=== PATIENT | female | born 1930 | race Caucasian/White ===

== ENCOUNTER 2017-09-21 15:15 | Inpatient (IN) | payer MEDICARE ==
[2017-09-21 15:59] LABS: Hemoglobin 9.4 g/dL (12.0-16.0); Mean Corpuscular HGB CONC 33.7 g/dL (32.0-36.0); Mean Corpuscular Hemoglobin 31.8 pg (27.0-31.0); Mean Corpuscular Volume 94.4 fl (81.0-99.0); Mean Platelet Volume 8.2 fL (7.4-10.4); Platelet Count 266 thou/uL (130-400); RBC Distribution Width 12.2 % (11.5-14.5); Red Blood Cell (RBC) Count 2.95 mill/uL (4.20-5.40); White Blood Cell (WBC) Count 6.8 thou/uL (4.8-10.8)
[2017-09-21 16:05] LABS: INR-International Normal Ratio 3.5; PTT 60.1 SEC (22.9-36.1); Prothrombin Time 36.5 SEC (12.0-14.7)
[2017-09-21 16:15] LABS: Eosinophils 5 % (0-10); Lymphocytes 18 % (21-51); MDiff Complete? YES; Monocytes 3 % (0-10); Neutrophil 68 % (42-75); PLT Morphology Comment Appears Adequate; Polychromasia SLIGHT = 2-3 cells (100X) (0-2/hpf); Reactive Lymphocytes 3 % (0-10)
[2017-09-21 16:23] LABS: ALT (SGPT) 13 U/L (8-55); AST (SGOT) 18 U/L (5-34); Albumin 3.5 g/dL (3.4-4.8); Alkaline Phosphatase 67 U/L (40-150); Anion Gap 14 mmol/L (10-20); BUN (Urea Nitrogen) 82 mg/dL (9.8-20.1); Bilirubin, Total 0.3 mg/dL (0.2-1.2); CK (CPK) 69 U/L (29-168); Calc. Creatinine Clearance 0 mL/min (70-130); Calcium 8.7 mg/dL (7.8-10.44); Carbon Dioxide 21 mmol/L (23-31); Chloride 105 mmol/L (98-107); Estimated GFR-MDRD 6; Globulin 2.9 g/dL (2.4-3.5); Glucose 116 mg/dL (83-110); Potassium 4.4 mmol/L (3.5-5.1); Protein, Total 6.4 g/dL (6.0-8.3); Sodium 136 mmol/L (136-145)
[2017-09-21 16:28] LABS: Magnesium 2.3 mg/dL (1.6-2.6); Phosphorus 6.3 mg/dL (2.3-4.7); Troponin I 0.028 ng/mL (< 0.028)
--- NOTE | 2017-09-21 17:14 | RAD ---
FRONTAL VIEW CHEST: Date: 09/21/17 INDICATION: Edema, dialysis patient, fluid overload. Reference made to 07/06/15. FINDINGS: There is focal prominence at the right hilar region which could relate to dilated vasculature, althou gh underlying mass or adenopathy is not excluded. Cardiac silhouette is prominent. There is perihilar interstitial prominence and slight vascular congestion. No significant effusion or discrete pneumoth orax. Evaluation is otherwise grossly stable. IMPRESSION: 1. Focal prominence of the right perihilar region as discussed above. Continued imaging follow-up is recommended. 2. Evidence of mild fluid overload. POS: LORE
[2017-09-21 18:19] LABS: Bilirubin Negative (Negative); Blood, Urine Small (Negative); Clarity CLEAR (Clear); Glucose, Urine (Dipstick) Negative (Negative); Leukocyte Negative (Negative); Nitrite Negative (Negative); Protein, Urine (Dipstick) 100 mg/dL (Neg-Trace); Urobilinogen 0.2 mg/dL (0.2-1.0)
[2017-09-21 18:23] LABS: Bacteria/HPF None Seen HPF (None Seen); Hyaline Casts/LPF 0-3 HYALINE CAST LPF (0-3 Hyaline); RBC/HPF 0-3 HPF (0-3); Squamous Epithelial 0-3 HPF (0-3); WBC/HPF 0-3 HPF (0-3)
--- NOTE | 2017-09-21 20:04 | CON ---
DATE OF CONSULTATION: 09/21/2017 HISTORY OF PRESENT ILLNESS: Ms. 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 According to the patient, she has not been feeling well for the last several days. She has be en having nausea. In addition, her appetite is much decreased. Please note that the patient was see n in the renal clinic back on 08/24. At that time, I recommended dialytic intervention, but she decl ined. She will now be admitted for initiation of dialysis. I was called by the ER earlier due to a coag INR of 3.5. Our plan is to consult Surgery for plan for placement of a cuffed hemodialysis catheter. REVIEW OF SYSTEMS: Decreased appetite, decreased energy level. Positive for nausea, but no syncopal episode and no vomiting, no hematochezia, no melena, no hematemesis, no abdominal pain, no joint marylu ns. No headaches, no shortness of breath, no chest pain, no diplopia, no hematochezia, no melena, no hematemesis. MEDICATIONS: Hydralazine 50 mg p.o. b.i.d., clonidine 0.1 mg p.o. b.i.d., Coumadin 5 mg q.a.m., simv astatin 20 mg at bedtime, nifedipine ER 60 mg p.o. b.i.d., Levaquin 500 mg x2 days, Imdur ER 120 mg o nce a day, fenofibrate 48 mg once a day, Lovenox 60 mg subcutaneously daily?, Xanax 0.25 mg daily. Calcitriol 0.25 mcg daily, sodium bicarbonate 650 mg p.o. b.i.d., Bystolic 5 mg daily, tamsulosin 0.4 mg daily. PAST MEDICAL HISTORY: 1. 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 2. Longstanding hypertension. 3. Hyperlipidemia, right renal mass -- benign finding. 4. History of left small kidney. PAST SURGICAL HISTORY: Status post right shoulder surgery, status post hysterectomy, status post rig ht partial nephrectomy. SOCIAL HISTORY: The patient is , lives in [place], 3 children. Education, high school. Sede ntary lifestyle, status post multiple blood transfusions. FAMILY HISTORY: No family history of ESRD. ALLERGIES: PENICILLIN. TRAUMA: None. IMMUNIZATIONS: Up-to-date. HOSPITALIZATIONS: Please see past medical history. PHYSICAL EXAMINATION: VITAL SIGNS: Blood pressure 130/70, heart rate 70. GENERAL: Awake, alert, comfortable, lethargic, not in overt distress. SKIN: Decreased turgor. HEENT: Pinkish conjunctivae, anicteric sclerae. NECK: No neck mass, no carotid bruits, no JVD. CHEST: No deformities. LUNGS: Clear breath sounds, no wheezing, no crackles. HEART: Normal sinus rhythm. No murmur, no gallops, no rubs. ABDOMEN: Flat, soft, nontender. No masses. Negative for epigastric bruits. EXTREMITIES: No edema. LABORATORY AND X-RAY FINDINGS: Laboratories of 09/21/2017, INR 3.5. Sodium 136, potassium 4.4, chlo ride 105, carbon dioxide 21, BUN 82, creatinine 6.39, glucose 116, calcium 8.7, AST 18, ALT 13, album in 3.5, phosphorus 6.3, magnesium 2.3, hemoglobin 9.4. Chest x-ray pending. ASSESSMENT AND PLAN: 1. Chronic renal failure/hypertensive/renovascular disease -- I think the patient is clinically urem ic. We will proceed with dialytic intervention. Surgical consult will be done for placement of a cu ffed hemodialysis catheter placement. Due to the planned surgery. Her INR is noted to be 3.5 -- we will give 2 units of fresh frozen plasma. I did discuss the case with the ER physician and a surgica l consult will be done. 2. Labile hypertension. Continue current blood pressure meds. Overall, I agree with current management.
[2017-09-21] MEDS ORDERED: hydrALAZINE 20 MG/ML VIAL ONE (21:03)
--- NOTE | 2017-09-22 01:53 | HP ---
PRIMARY CARE PHYSICIAN: Citlaly Wang MD PRIMARY GUIDE DOG INSTRUCTOR: Chung Dowell MD REASON FOR ADMISSION: Initiate hemodialysis. HISTORY OF PRESENT ILLNESS: This is an 87-year-old white female with a history of hypertension and c hronic renal insufficiency, who was sent by Dr. Dowell for initiation of hemodialysis. She reports that she has had kidney problems ever since she developed high blood pressure about 7 years ago. 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 The other kidney looked smal l and nonfunctioning and they had to resect 2 tumors in [place] from her other kidney. Both of t hese turned out to be benign. She has had progressive worsening of her kidney function ever since . She does continue to produce large amount of urine; however, her creatinine has been increasing and climbing. She also reports fatigue and shortness of breath with exertion over the last months. The patient also has a history of having twisted and broke her right ankle about a month ago, and cur rently wearing a boot for that. She has no other specific complaints at this time. PAST MEDICAL HISTORY: 1. Hypertension x7 years. 2. Hypercholesterolemia. 3. Chronic renal insufficiency, now at stage V. 4. 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 PAST SURGICAL HISTORY: 1. Hysterectomy. 2. Right shoulder surgery. 3. Partial nephrectomy. PSYCHIATRIC HISTORY: None. SOCIAL HISTORY: No tobacco, alcohol, or illicit drug use. Her 4 months ago. She has h ad decreased appetite and food intake since then. She does not have any meal, she does not cook as o ften. FAMILY HISTORY: No significant family history per patient report. ALLERGIES: PENICILLIN. CURRENT MEDICATIONS: 1. Simvastatin 20 mg daily. 2. Isosorbide mononitrate 120 mg daily. 3. Nifedipine extended release 60 mg twice a day. 4. Calcitriol 0.25 mcg daily. 5. Clonidine 0.1 mg daily. 6. Bystolic 5 mg 1 daily. 7. Warfarin 7.5 mg daily except for Thursday when she is not supposed to take anything. 8. Fish oil 1000 mg daily. 9. Sodium bicarbonate 650 mg daily. 10. Tamsulosin 0.4 mg daily. 11. Alprazolam 0.25 mg daily. REVIEW OF SYSTEMS: Constitutional: No fevers. No chills. Decreased appetite and some weight loss per the son, though the patient denies this. Eyes: No double vision or blurred vision. ENT: No co ngestion, drainage, or sore throat. Cardiovascular: No chest pain. No palpitations or racing heart . Pulmonary: No coughing or wheezing. She does have a little bit of dyspnea on exertion. Otherwis e, no shortness of breath, no orthopnea. Gastrointestinal: No abdominal pain. No nausea or vomitin g. No diarrhea or constipation. Genitourinary: No dysuria or hematuria. She does produce large am ount of clear urine she states. Musculoskeletal: See HPI. No other complaints besides her left ank le, which is in a boot. Skin: She has a little bit of a rubbed area from underneath the boot over h er medial malleolus. She also has an itchy rash she gets on the back of her neck on and off. Neurol ogic: No numbness, tingling, or focal weakness. PHYSICAL EXAMINATION: VITAL SIGNS: Blood pressure 190/72, pulse 49, respirations 17, temperature 98.1, O2 sat 97% on room air. GENERAL: This is a well-developed elderly white female in no acute distress. HEENT: Pupils equal, round, and reactive to light. Oropharynx is clear without lesions, erythema, o r exudate. NECK: Supple. No lymphadenopathy. No thyroid nodules or enlargement. No JVD. HEART: Regular rate and rhythm. No murmurs, rubs, or gallops. LUNGS: She has some mild crackles in bilateral bases. Decent air movement throughout. ABDOMEN: Soft. Nontender to palpation. Normoactive bowel sounds. No hepatosplenomegaly or masses. EXTREMITIES: No clubbing, cyanosis, or edema. She does have a boot to her left foot. SKIN: She has a little bit of a rubbed area over her medial malleolus on the left side. No other ra shes were visualized. NEUROLOGIC: Intact strength in all extremities. Deep tendon reflex is 2+ in all extremities. No fa cial droop. LABORATORY DATA: CBC with a hemoglobin of 9.4, hematocrit of 27.9, normal MCV. The rest of the CBC is normal. Coagulation profile: INR is 3.5. Complete metabolic panel notable for carbon dioxide of 21, BUN of 82 and a creatinine of 6.39, and glucose of 116. The rest is normal. Phosphorus is elev ated at 6.3. Magnesium is normal at 2.3. Cardiac marker set negative x1. Urinalysis with small blo od and 100 protein. The rest was negative. Chest x-ray: I did review the chest x-ray done in the emergency room along with the radiologist's re port. It does show some bilateral increased interstitial markings consistent with mild volume overlo ad and then she has a focal prominence in the right perihilar region, which might be due to pulmonary vascular congestion versus cannot rule out a mass. ASSESSMENT AND PLAN: 1. Chronic kidney disease, stage V, now requiring dialysis. The patient is planned to have a tunnel ed dialysis catheter placed by Dr. Patel tomorrow morning. She needs to be n.p.o. after midnight. We will also need to reverse her Coumadin. She is receiving FFP in the emergency room. 2. Chronic anticoagulation, currently supratherapeutic on her Coumadin. We are holding Coumadin for now and giving FFP. 3. History of deep venous thrombosis and pulmonary embolism. This is all one-time incident only wit hout any specific risk factors for future deep venous thrombosis. It is possible that she may be abl e to go off Coumadin anticoagulation at some point. Definitely, it should be safe to hold it for any procedures that she has done to start her dialysis. 4. Hypertension. The patient is currently severely hypertensive. I will give her 10 mg of hydralaz ine IV q.4 hours as needed for severe hypertension and we will resume her home medications. I think she has missed her evening dose of nifedipine and uncertain if she is still on hydralazine at night. It was not listed on her ER notes. 5. Gastrointestinal prophylaxis. Put the patient on Pepcid twice a day. 6. Deep venous thrombosis prophylaxis. The patient is on sequential compression devices while she i s in bed. 7. Code status was discussed with the patient. She is a FULL CODE. Should she be incapacitated, he r son would be her medical decision maker. His name is Bjorn Huang.
[2017-09-22] MEDS ORDERED: Ondansetron HCl/PF 4 MG/2 ML Vial IVP PRN (02:58)
[2017-09-22] MEDS ORDERED: Ondansetron ODT 4 MG TAB SL PRN (02:58)
[2017-09-22] MEDS ORDERED: Acetaminophen 325 MG TAB PO PRN (02:58)
[2017-09-22] MEDS ORDERED: Acetaminophen 650 MG Suppository PR PRN (05:14)
[2017-09-22] MEDS ORDERED: Docusate 100 MG CAP PO SCH (05:30)
[2017-09-22] MEDS ORDERED: NIFEdipine XL 60 MG TAB PO SCH (05:30)
[2017-09-22] MEDS ORDERED: Lidocaine 1% PF 5 ML VIAL ONE (07:32)
[2017-09-22] MEDS ORDERED: PROPOFOL 200 MG/20 ML VIAL ONE (07:32)
[2017-09-22 07:58] LABS: INR-International Normal Ratio 2.3; Prothrombin Time 25.9 SEC (12.0-14.7)
[2017-09-22] MEDS: hydrALAZINE 20 MG/ML VIAL SLOW IVP PRN (08:23)
--- NOTE | 2017-09-22 09:21 | PDOC.PN ---
- Subjective Encounter Start Date: 09/22/17 Encounter Start Time: 10:40 Subjective: Patient with dyspnea on exertion. None at rest currently. Hungry as -: NPO for HD cath placement today. - Objective Resuscitation Status: Resuscitation Status FULL:Full Resuscitation MAR Reviewed: Yes Vital Signs & Weight: Vital Signs (12 hours) Temp Pulse Resp BP BP BP Pulse Ox 09/22/17 08:25 59 L 18 198/97 H 93 L 09/22/17 08:23 59 L 213/96 H 09/22/17 07:00 54 L 197/91 H 09/22/17 05:14 98.4 F 54 L 20 197/91 H 93 L 09/22/17 03:21 97.8 F 55 L 20 95 09/22/17 03:16 97.8 F 55 L 20 218/95 H 95 Weight Weight 117 lb 8 oz I&O: 09/21/17 09/22/17 09/23/17 06:59 06:59 06:59 Intake Total 100 Output Total 450 Balance -350 Result Diagrams: 09/21/17 15:34 09/21/17 15:34 Phys Exam - Physical Examination Constitutional: NAD HEENT: moist MMs Respiratory: no wheezing, no rhonchi mild rales in bases, good air movement throughout, no increased WOB Cardiovascular: RRR, no significant murmur Gastrointestinal: soft, non-tender, positive bowel sounds Musculoskeletal: no edema Neurological: non-focal, moves all 4 limbs Psychiatric: normal affect, A&O x 3 Dx/Plan (1) Chronic kidney disease, stage 5, kidney failure Code(s): N18.5 - CHRONIC KIDNEY DISEASE, STAGE 5 Status: Chronic Comment: Instituting Hemodialysis (2) Hx pulmonary embolism Code(s): Z86.711 - PERSONAL HISTORY OF PULMONARY EMBOLISM Status: Resolved Comment: on Coumadin, holding for vascular access (3) HTN (hypertension) Code(s): I10 - ESSENTIAL (PRIMARY) HYPERTENSION Status: Chronic Qualifiers: Hypertension type: essential hypertension Qualified Code(s): I10 - Essential (primary) hypertension Comment: severely elevated due to volume overload, needs dialysis, add nitropaste for now - Plan cont current plan of care Vascular access then start hemodialysis * . - Discharge Day Encounter end time: 10:50
[2017-09-22] MEDS ORDERED: ALPRAZolam 0.25 MG TAB PO PRN (09:23)
[2017-09-22] MEDS ORDERED: Clindamycin/D5W 900 MG in Premix Bag 1 BAG IVPB SCH (09:30)
--- NOTE | 2017-09-22 09:57 | PRG ---
DATE OF SERVICE: 09/22/2017 SUBJECTIVE: Mr. Zepeda is an 87-year-old white female with history of chronic renal failure for h ypertensive/renovascular disease that was admitted for uremic signs and symptoms. Surgical consult h as been done for a planned cuffed hemodialysis catheter placement. The patient denies any chest pain or shortness of breath this morning. We noted that the INR is still elevated. She did receive 2 un its of FFP last night. We will be ordering another 2 units of FFP this morning. OBJECTIVE: VITAL SIGNS: Blood pressure 198/97, heart rate 59, respiratory rate 18, pulse ox 93% room air. GENERAL: Awake, supine, comfortable, not in overt distress. SKIN: Adequate turgor. HEENT: Slightly pale conjunctivae, anicteric sclerae. NECK: No neck mass, no carotid bruits, no JVD. CHEST: No deformities. LUNGS: Clear breath sounds, no wheezing, no crackles. HEART: Normal sinus rhythm. No murmur, no gallops or rubs. ABDOMEN: Globular, soft, nontender, no masses. EXTREMITIES: No edema, no deformities. MEDICATIONS: Of 09/22/2017 reviewed. LABORATORY DATA: Of 09/21/2017, sodium 136, potassium 4.4, chloride 105, carbon dioxide 21, BUN 82, creatinine 6.39, GFR 6 mL per minute, calcium 8.7, phosphorus 6.3, magnesium 2.3. Chest x-ray of showed evidence of mild fluid overload. Prominence of right perihilar region. ASSESSMENT AND PLAN: 1. Chronic renal failure, worsening renal function for the last several months. I think the patient clinically uremic. We will proceed with dialysis. Surgical consult has been done for placement of cuffed hemodialysis catheter. The patient may eventually need arteriovenous fistula placement also s yoli she prefers hemodialysis. 2. Labile hypertension - minoxidil 2.5 mg tab was added to the current antihypertensive regimen. 3. Borderline anemia - continue to observe. 4. Mild volume overload - we will proceed with dialysis once the dialysis access is placed. 5. Mild hyperphosphatemia. Start Renvela 800 mg 1 tab t.i.d. with meals.
[2017-09-22 10:33] LABS: HBSAB Concentration 0.35 mIU/mL; Hep B Core Total Ab Non-Reactive (NonReactive); Hep B Core Total Index 0.05 S/CO (0-0.79); Hep B Surf AB Non-Reactive (NonReactive)
[2017-09-22] MEDS: Ondansetron ODT 4 MG TAB PO PRN (11:08)
[2017-09-22] MEDS: Minoxidil 2.5 MG TAB PO SCH (11:08)
[2017-09-22] MEDS: Acetaminophen 325 MG TAB PO PRN ×2 (11:08→22:30)
[2017-09-22] MEDS: Sevelamer Carbonate 800 MG TAB PO SCH ×2 (11:33→17:11)
[2017-09-22 11:56] LABS: Hep B Surf Ag NonReactive S/CO (NonReactive)
[2017-09-22 11:57] LABS: HBSAg Index 0.23 S/CO (0-0.99)
[2017-09-22] MEDS ORDERED: Nitroglycerin 2% Ointment 1 INCH/1 GM Packet TOP SCH (12:00)
[2017-09-22] MEDS ORDERED: Heparin 10,000 UNITS/ 10 ML VIAL ONE (12:00)
--- NOTE | 2017-09-22 13:13 | CON ---
DATE OF CONSULTATION: 09/22/2017 REASON FOR CONSULT: Renal failure. HISTORY OF PRESENT ILLNESS: Ms. Huang is an 87-year-old woman with known chronic renal disease, who has progressed to stage 5. Her seed trucker had suggested last month that she started on hemodi alysis, but she declined at that time. She came into the emergency room yesterday due to increasing malaise. She has had some issues of nausea and rare abdominal discomfort. She lost her balance rece ntly and twisted her left ankle, sustaining a small fracture and is in a walking boot for that. The history that other providers have taken suggests that she has some shortness of breath, which has bee n increasing, but she denies this. However, she does not have much them and can only walk about 50 f eet even before she sustained her ankle injury. Other providers have also gotten a history of poor f ood intake, but she denies this as well; however, she does admit that she has been losing weight over the past few months. Her of many years in May when she states that even though she feels like she is eating normally. Her weight has been dropping. She denies any change in her xu l habits and does not have any orthopnea. She does have some mild swelling in her legs, but mostly r elated to her ankle fracture. PAST MEDICAL HISTORY: Hypertension, hyperlipidemia, end-stage renal failure, history of deep venous thrombosis and pulmonary embolus in her left leg 2 years ago without any history of trauma, and recen t left ankle injury with small fracture. PAST SURGICAL HISTORY: Hysterectomy, shoulder surgery, and partial nephrectomy. SOCIAL HISTORY: She does not smoke, drink or use illicit drugs. Her son is at the bedside and her d esignated decision maker in the event that she is unable to make her own decisions. She is f or the past 4 months. FAMILY HISTORY: No significant family medical history. ALLERGIES: PENICILLIN causes a rash. OUTPATIENT MEDICATIONS: Include simvastatin, isosorbide mononitrate, nifedipine, calcitriol, clonidi ne, Bystolic, warfarin, fish oil, sodium bicarbonate, tamsulosin, and alprazolam. INPATIENT MEDICATIONS: Include Lipitor, docusate, fenofibrate, hydralazine, isosorbide mononitrate, minoxidil, nifedipine, nitroglycerin ointment, Renvela, and multiple p.r.n.'s. REVIEW OF SYSTEMS: Ten system review of systems is negative except per HPI. PHYSICAL EXAMINATION: VITAL SIGNS: The patient is afebrile, heart rate in the 50s, blood pressure 171/79, respirations 18, 93% saturated on room air. GENERAL: Reveals a frail elderly woman, in no acute distress. Her BMI is 18. She is not flushed or toxic in appearance. She is not jaundiced or icteric. HEENT: Unremarkable. NECK: Supple, without lymphadenopathy or thyroid nodules. HEART: Regular in its rate and rhythm. I do not appreciate any murmurs. LUNGS: Clear to auscultation bilaterally. ABDOMEN: Soft and nontender. She has healed surgical incisions. EXTREMITIES: Warm and well perfused. She has bilateral filling on Donald's testing. She has good ce phalic veins and antecubital veins palpable and visible on examination bilaterally. She has an IV in the right arm and is right-handed. Her left ankle is swollen and bruised. There is small abrasion over the left medial ankle area. NEUROLOGIC: No focal deficits. PSYCHIATRIC: Alert, oriented, and appropriate. LABORATORY DATA: White count is normal at 6.8, hematocrit low at 27.9, platelets 266. Her initial I NR was 3.5, this has come down to 2.3 after 2 units of FFP. BUN and creatinine are 82 and 6.39. Pot assium is 4.4 and bicarbonate is 21. Phosphorus is elevated at 6.3. Urine is positive for protein a nd a small amount of blood. IMAGING: Chest x-ray showed some mild fluid overload and mild prominence of the right perihilar maddie on. ASSESSMENT AND PLAN: End-stage renal failure felt to have uremic symptoms by her seed trucker, also in mild fluid overload with decreasing stamina and increasing dyspnea on exertion. The patient has d ecided to go ahead and start on hemodialysis and requires a dialysis catheter for this. I feel that her bleeding risk is acceptable at an INR of 2.3 to proceed with placement of a tunneled hemodialysis catheter. The procedure and its inherent risks were discussed with the patient and her son. These include but are not limited to bleeding, which is increased due to her chronic anticoagulation; infec tion; risks of anesthesia; hemothorax or pneumothorax; and need for other procedures. They understan d and accept these risks and wish to proceed. I have put her on the schedule for later today. All o f their questions were answered and antibiotics have been ordered industrial production manager to the OR.
[2017-09-22] MEDS ORDERED: Clindamycin/D5W 900 mg/50 ml Premix Bag ONE (13:47)
[2017-09-22] MEDS ORDERED: Levofloxacin 500 mg/D5W 100 ml Premix Bag ONE (14:40)
[2017-09-22] MEDS ORDERED: Bupivacaine/Epinephrine 0.25% 30 ML VIAL ONE (15:11)
[2017-09-22] MEDS ORDERED: Lidocaine 2% 10 ML INJ ONE (15:11)
[2017-09-22] MEDS ORDERED: Heparin 10,000 UNITS/1 ML VIAL ONE (15:11)
[2017-09-22] MEDS ORDERED: Sodium Chloride 0.9% 20 ML ONE (15:11)
[2017-09-22] MEDS ORDERED: Meperidine HCl/PF 25 MG/ML VIAL ONE (15:19)
--- NOTE | 2017-09-22 18:14 | RAD ---
CHEST 1 VIEW: Date: 09/22/17 HISTORY: Hemodialysis catheter placement. COMPARISON: Radiograph from prior day. FINDINGS: Dialysis catheter is in place with tip at the mid to inferior SVC. No pneumothorax. Prior Latarjet procedure of the right shoulder. Chronic interstitial markings in the lungs. Cardiac s ilhouette and mediastinal contours are similar. IMPRESSION: No pneumothorax post dialysis catheter placement. POS: C
[2017-09-22] MEDS: hydrALAZINE 25 MG TAB PO SCH (19:31)
[2017-09-22] MEDS: Docusate 100 MG CAP PO SCH (20:47)
[2017-09-22] MEDS: Atorvastatin Calcium 10 MG TAB PO SCH (20:47)
[2017-09-22] MEDS: Nitroglycerin 2% Ointment 1 INCH/1 GM Packet TOP SCH (20:48)
[2017-09-22] MEDS: NIFEdipine XL 60 MG TAB PO SCH (20:48)
[2017-09-22] MEDS ORDERED: Non-Formulary Item 1 EACH (Hydralazine Hcl [Hydralazine Hcl] 50 MG) PO SCH (21:00)
[2017-09-22] MEDS ORDERED: Simvastatin 20 MG TAB PO SCH (21:00)
[2017-09-23] MEDS: Ondansetron ODT 4 MG TAB PO PRN ×2 (00:20→22:06)
[2017-09-23] MEDS: hydrALAZINE 20 MG/ML VIAL SLOW IVP PRN (00:20)
[2017-09-23 04:56] LABS: #Eosinphils 0.3 thou/uL (0.0-0.7); #Monocytes 0.9 thou/uL (0.11-0.59); #Neutrophils 6.4 thou/uL (1.40-6.50); %Basophils 0.1 % (0.0-1.0); %Eosinophils 3.1 % (0.0-10.0); %Lymphocytes 11.9 % (21.0-51.0); %Monocytes 10.7 % (0.0-10.0); %Neutrophils 74.2 % (42.0-75.0); Hemoglobin 10.1 g/dL (12.0-16.0); Mean Corpuscular HGB CONC 33.7 g/dL (32.0-36.0); Mean Corpuscular Hemoglobin 31.8 pg (27.0-31.0); Mean Corpuscular Volume 94.5 fl (81.0-99.0); Mean Platelet Volume 8.2 fL (7.4-10.4); Platelet Count 245 thou/uL (130-400); RBC Distribution Width 12.5 % (11.5-14.5); Red Blood Cell (RBC) Count 3.18 mill/uL (4.20-5.40); White Blood Cell (WBC) Count 8.7 thou/uL (4.8-10.8)
[2017-09-23 05:16] LABS: Anion Gap 15 mmol/L (10-20); BUN (Urea Nitrogen) 48 mg/dL (9.8-20.1); Calc. Creatinine Clearance 7 mL/min (70-130); Calcium 8.8 mg/dL (7.8-10.44); Carbon Dioxide 24 mmol/L (23-31); Chloride 103 mmol/L (98-107); Estimated GFR-MDRD 9; Glucose 88 mg/dL (83-110); Phosphorus 4.7 mg/dL (2.3-4.7); Sodium 138 mmol/L (136-145)
[2017-09-23] MEDS ORDERED: Heparin 10,000 UNITS/ 10 ML VIAL ONE ×2 (09:00)
[2017-09-23] MEDS: Sevelamer Carbonate 800 MG TAB PO SCH ×3 (11:09→16:20)
[2017-09-23] MEDS: NIFEdipine XL 60 MG TAB PO SCH ×2 (11:10→20:58)
[2017-09-23] MEDS: Docusate 100 MG CAP PO SCH ×2 (11:10→20:58)
[2017-09-23] MEDS: Nitroglycerin 2% Ointment 1 INCH/1 GM Packet TOP SCH ×2 (11:11→21:00)
[2017-09-23] MEDS: Fenofibrate 48 MG TAB PO SCH (11:11)
[2017-09-23] MEDS: Minoxidil 2.5 MG TAB PO SCH (11:11)
[2017-09-23] MEDS: hydrALAZINE 25 MG TAB PO SCH ×2 (11:16→20:58)
--- NOTE | 2017-09-23 13:17 | PRG ---
DATE OF SERVICE: 09/23/2017 RENAL MEDICINE SUBJECTIVE: Ms. Huang is an 87-year-old white female who was admitted for uremic signs and symp toms. She has been initiated on dialysis. She had a cuffed hemodialysis catheter placed. She under went 1-hour dialysis yesterday. She is currently at the dialysis unit. I am supervising the patient with dialysis and I was at the bedside. Tolerating said treatment. No other complaints, no chest p ain or shortness of breath. PHYSICAL EXAMINATION: VITAL SIGNS: Blood pressure is noted at 164/72, heart rate 68, respiratory rate 14, temperature 98.4 , pulse ox 94%. GENERAL: Noted to be awake, alert, comfortable, not in overt distress. SKIN: Adequate turgor. HEENT: Pinkish conjunctivae, anicteric sclerae. NECK: No neck mass, no carotid bruits, no JVD. CHEST: No deformities. LUNGS: Clear breath sounds, no wheezing, no crackles. HEART: Normal sinus rhythm. No murmurs, no gallops, no rubs. ABDOMEN: Globular, soft, nontender, no masses. EXTREMITIES: No edema, no deformities. MEDICATIONS: Medications of 09/23/2017 was reviewed. LABORATORY DATA: Laboratories of 09/23/2017; white count 8.7, hemoglobin 10.1, hematocrit 30. Sodiu m 138, potassium 4, chloride 103, carbon dioxide 24, BUN 48, creatinine 4.71, calcium 8.8, phosphorus 4.7, PTH is 188.2. ASSESSMENT AND PLAN: 1. Chronic renal failure - due to the clinical signs of uremia, patient was initiated on dialysis. My plan is to do daily hemodialysis with this patient. I have also made arrangement for outpatient d ialysis placement with the patient. 2. Labile hypertension, improved. Continue current blood pressure meds. Check base met and CBC in a.m.
--- NOTE | 2017-09-23 14:21 | PDOC.PN ---
- Subjective Encounter Start Date: 09/23/17 Encounter Start Time: 14:00 Subjective: f/u for ESRD initiating HD completing one session without difficulty. -: No new complaints, SOB, CP. Appetite ok. - Objective Resuscitation Status: Resuscitation Status FULL:Full Resuscitation MAR Reviewed: Yes Vital Signs & Weight: Vital Signs (12 hours) Temp Pulse Resp BP Pulse Ox 09/23/17 11:16 56 L 09/23/17 11:10 56 L 09/23/17 11:05 98.1 F 56 L 16 178/74 H 96 09/23/17 07:58 98.4 F 60 14 164/72 H 94 L 09/23/17 04:00 98.7 F 64 18 141/63 H 96 09/23/17 02:35 97 Weight Admit Weight 117 lb 8 oz Weight 117 lb 8 oz I&O: 09/22/17 09/23/17 09/24/17 06:59 06:59 06:59 Intake Total 100 1220 Output Total 450 820 Balance -350 400 Result Diagrams: 09/23/17 03:46 09/23/17 03:46 Additional Labs: Laboratory Tests 07/12/15 09/21/17 09/21/17 04:05 15:34 15:34 Hgb PT 21.3 H INR 1.8 3.5 Creatinine 6.39 H Phosphorus Magnesium 09/21/17 09/21/17 09/22/17 15:34 15:36 07:39 Hgb 9.4 L PT INR 2.3 Creatinine Phosphorus 6.3 H Magnesium 2.3 09/23/17 03:46 Hgb PT INR Creatinine Phosphorus 4.7 Magnesium EKG Reviewed by me: Yes (Tele - SR) Phys Exam - Physical Examination Constitutional: NAD HEENT: PERRLA, moist MMs, sclera anicteric, oral pharynx no lesions Neck: no nodes, no JVD, supple Respiratory: no wheezing, no rales, no rhonchi, clear to auscultation bilateral S1, S2 Cardiovascular: RRR, no significant murmur, no rub, gallop Gastrointestinal: soft, non-tender, no distention, positive bowel sounds Musculoskeletal: no edema, pulses present Neurological: non-focal, normal sensation, moves all 4 limbs Psychiatric: normal affect, A&O x 3 Skin: no rash, normal turgor, cap refill <2 seconds Dx/Plan (1) ESRD (end stage renal disease) on dialysis Code(s): N18.6 - END STAGE RENAL DISEASE; Z99.2 - DEPENDENCE ON RENAL DIALYSIS Status: Acute Comment: HD initiated 09/22/17, plan for outpt HD with [facility] on d/c, continue HD per Renal recommendations, vein mapping today (2) Chronic anticoagulation Code(s): Z79.01 - HEATING UNIT MECH[employer]IC (CURRENT) USE OF ANTICOAGULANTS Status: Chronic Comment: supratherapeutic INR s/p 4u FFP, serial INR monitoring, resume Coumadin (3) Anemia in CKD (chronic kidney disease) Code(s): N18.9 - CHRONIC KIDNEY DISEASE, UNSPECIFIED; D63.1 - ANEMIA IN CHRONIC KIDNEY DISEASE Status: Chronic Comment: Serial H/H, (4) HTN (hypertension) Code(s): I10 - ESSENTIAL (PRIMARY) HYPERTENSION Status: Chronic Qualifiers: Hypertension type: essential hypertension Qualified Code(s): I10 - Essential (primary) hypertension Comment: Improved after initiating HD, serial monitoring, continue Minoxidil, Nifedipine and Hydralazine - Plan plan discussed w/ family, PT/OT, renal social worker, out of bed/ambulate, DVT proph w/SCDs Stable currently -: Continue serial HD -: CM for outpt coordination for HD -: Transfer to Medical floor -: AM lab: BMP, CBC * ? D/C in 24-48h
--- NOTE | 2017-09-23 16:13 | ULT ---
BILATERAL UPPER EXTREMITY VENOUS MAPPIN09/23/2017 HISTORY: End stage renal disease. Evaluate for dialysis access. FINDINGS: There is sluggish flow within the right internal jugular vein, which is nonspecific. Color-flow eval uation, as well as Doppler evaluation, does demonstrate flow in the right internal jugular vein. The re is flow present in the right subclavian vein, with normal lumen compressibility present within the right axillary vein. There is normal flow and lumen compressibility of the left internal jugular ve in, with normal flow in the left subclavian vein and normal lumen compressibility in the left axillar y vein. RIGHT UPPER EXTREMITY CEPHALIC VEIN DIAMETERS: UPPER ARM: 1.8 mm MID ARM: 3.1 mm DISTAL ARM: 2 mm ANTECUBITAL FOSSA: 2.2 mm PROXIMAL FOREARM: 2.3 mm MID FOREARM: 2 mm DISTAL FOREARM: 1.9 mm RIGHT UPPER EXTREMITY BASILIC VEIN DIAMETERS: UPPER ARM: 2.7 mm MID ARM: 2.7 mm DISTAL ARM: 4.1 mm ANTECUBITAL FOSSA: 4.2 mm PROXIMAL FOREARM: 2.5 mm MID FOREARM: 1.6 mm DISTAL FOREARM: 1.4 mm LEFT UPPER EXTREMITY CEPHALIC VEIN DIAMETERS: UPPER ARM: 4.1 mm MID ARM: 3.6 mm DISTAL ARM: 4.1 mm ANTECUBITAL FOSSA: 2.7 mm PROXIMAL FOREARM: 3 mm MID FOREARM: 3.4 mm DISTAL FOREARM; 3.9 mm LEFT UPPER EXTREMITY BASILIC VEIN DIAMETERS: UPPER ARM: 3.1 mm MID ARM: 2.6 mm DISTAL ARM: 2.3 mm ANTECUBITAL FOSSA: 2.6 mm PROXIMAL FOREARM: 2.2 mm MID FOREARM: 1.2 mm DISTAL FOREARM: 1.9 mm RIGHT UPPER EXTREMITY ARTERIAL DIAMETERS: BRACHIAL ARTERY: 4 mm RADIAL ARTERY: 3 mm ULNAR ARTERY: 1.9 mm LEFT UPPER EXTREMITY ARTERIAL DIAMETERS: BRACHIAL ARTERY: 4.3 mm RADIAL ARTERY: 2.7 mm ULNAR ARTERY: 1.9 mm IMPRESSION: Cephalic and basilic vein diameters are as described above. POS: [facility]
[2017-09-23] MEDS ORDERED: Tuberculin PPD 0.1 ML VIAL I-DERMAL SCH (18:00)
[2017-09-23] MEDS: Atorvastatin Calcium 10 MG TAB PO SCH (20:58)
[2017-09-24] MEDS: Ondansetron HCl/PF 4 MG/2 ML Vial IVP PRN ×2 (00:35→13:56)
[2017-09-24 04:59] LABS: #Eosinphils 0.1 thou/uL (0.0-0.7); #Lymphocytes 0.7 thou/uL (1.20-3.40); #Monocytes 1.2 thou/uL (0.11-0.59); #Neutrophils 7.6 thou/uL (1.40-6.50); %Basophils 0.1 % (0.0-1.0); %Eosinophils 0.9 % (0.0-10.0); %Lymphocytes 7.6 % (21.0-51.0); %Neutrophils 79.4 % (42.0-75.0); Mean Corpuscular HGB CONC 33.7 g/dL (32.0-36.0); Mean Corpuscular Volume 95.1 fl (81.0-99.0); Mean Platelet Volume 8.6 fL (7.4-10.4); Platelet Count 264 thou/uL (130-400); RBC Distribution Width 12.3 % (11.5-14.5); Red Blood Cell (RBC) Count 3.11 mill/uL (4.20-5.40); White Blood Cell (WBC) Count 9.6 thou/uL (4.8-10.8)
[2017-09-24 05:20] LABS: Anion Gap 12 mmol/L (10-20); BUN (Urea Nitrogen) 43 mg/dL (9.8-20.1); Calc. Creatinine Clearance 8 mL/min (70-130); Calcium 9.1 mg/dL (7.8-10.44); Carbon Dioxide 27 mmol/L (23-31); Chloride 100 mmol/L (98-107); Estimated GFR-MDRD 9; Glucose 112 mg/dL (83-110); Potassium 3.9 mmol/L (3.5-5.1); Sodium 135 mmol/L (136-145)
[2017-09-24] MEDS ORDERED: Heparin 10,000 UNITS/ 10 ML VIAL ONE (09:00)
--- NOTE | 2017-09-24 09:13 | PRG ---
DATE OF SERVICE: 09/24/2017 SERVICE: Renal Medicine. SUBJECTIVE: Ms. Huang is an 87-year-old white female with chronic renal failure, undergoing hem odialysis. I am at the bedside supervising her dialysis. She voices no new complaints except the fa ct that she thinks that dialysis x2 done. We will do her only for 3 hours today. My plan is not to do her dialysis tomorrow, but place her back on a Thursday, , and Thursday dialysis. No compl aints of chest pain or shortness of breath. OBJECTIVE: VITAL SIGNS: Blood pressure is 136/64, heart rate 76, respiratory rate 15, temperature 98.4, pulse o x 95%. GENERAL: Awake, alert, comfortable, not in distress. SKIN: Adequate turgor. HEENT: Pinkish conjunctivae, anicteric sclerae. NECK: No neck mass, no carotid bruits, no JVD. CHEST: No deformities. LUNGS: Clear breath sounds, no wheezing, no crackles. HEART: Normal sinus rhythm. No murmur, no gallops, no rubs. ABDOMEN: Globular, soft, nontender, no masses. EXTREMITIES: No edema, no deformities. MEDICATIONS: Of 09/24/2017 was reviewed. LABORATORY DATA: Of 09/24/2017 shows a white count of 9.6, hemoglobin 10. Sodium 135, potassium 3.9 , chloride 100, carbon dioxide 27, BUN 43, creatinine 4.49. ASSESSMENT AND PLAN: 1. Chronic renal failure/end-stage renal disease - doing well. Tolerating current hemodialysis maddie men. No changes will be made with her current dialysis regimen except to place her back on a Thursday , , and Thursday dialysis regimen. We are awaiting dialysis placement for this patient. 2. Hypertension, much improved with adjustment of blood pressure medications. 3. Borderline anemia. Continue to observe.
[2017-09-24] MEDS: Sevelamer Carbonate 800 MG TAB PO SCH ×3 (11:34→18:02)
[2017-09-24] MEDS: hydrALAZINE 25 MG TAB PO SCH ×2 (11:35→21:12)
[2017-09-24] MEDS: Nitroglycerin 2% Ointment 1 INCH/1 GM Packet TOP SCH ×2 (11:35→21:13)
[2017-09-24] MEDS: Fenofibrate 48 MG TAB PO SCH (11:35)
[2017-09-24] MEDS: Minoxidil 2.5 MG TAB PO SCH (11:35)
[2017-09-24] MEDS: Docusate 100 MG CAP PO SCH ×2 (11:35→21:12)
[2017-09-24] MEDS: NIFEdipine XL 60 MG TAB PO SCH ×2 (11:35→21:12)
[2017-09-24] MEDS ORDERED: Ondansetron HCl/PF 4 MG/2 ML Vial SLOW IVP SCH (15:45)
--- NOTE | 2017-09-24 16:20 | PDOC.PN ---
- Subjective Encounter Start Date: 09/24/17 Encounter Start Time: 16:15 Subjective: f/u for ESRD on HD tolerating session today. Developed nausea and vomiting -: afterward minimally responsive to Zofran. Last meal at lunchtime. No BM -: in 2-3 days. - Objective Resuscitation Status: Resuscitation Status FULL:Full Resuscitation MAR Reviewed: Yes Vital Signs & Weight: Vital Signs (12 hours) Temp Pulse Resp BP Pulse Ox 09/24/17 15:19 97.4 F L 71 18 154/80 H 97 09/24/17 11:35 70 09/24/17 11:28 98.0 F 70 16 156/69 H 93 L 09/24/17 07:32 98.4 F 76 15 136/64 95 Weight Admit Weight 117 lb 8 oz Weight 116 lb 13.52 oz I&O: 09/23/17 09/24/17 09/25/17 06:59 06:59 06:59 Intake Total 1220 240 480 Output Total 696 026 3880 Balance 400 -160 -520 Result Diagrams: 09/24/17 03:50 09/24/17 03:50 Additional Labs: Laboratory Tests 07/12/15 09/21/17 09/21/17 04:05 15:34 15:34 Hgb PT 21.3 H INR 1.8 3.5 Creatinine 6.39 H Phosphorus Magnesium 09/21/17 09/21/17 09/22/17 15:34 15:36 07:39 Hgb 9.4 L PT INR 2.3 Creatinine Phosphorus 6.3 H Magnesium 2.3 09/23/17 03:46 Hgb PT INR Creatinine Phosphorus 4.7 Magnesium EKG Reviewed by me: Yes (Tele - SR in 60's) Phys Exam - Physical Examination ill-appearing, alert, responds to questions HEENT: PERRLA, moist MMs, sclera anicteric, oral pharynx no lesions Neck: no nodes, no JVD, supple R upper chest with tunneled HD catheter in place Respiratory: no wheezing, no rales, no rhonchi, clear to auscultation bilateral Cardiovascular: RRR, no significant murmur, no rub, gallop Gastrointestinal: soft, non-tender, no distention, positive bowel sounds Musculoskeletal: no edema, pulses present Neurological: non-focal, normal sensation, moves all 4 limbs Psychiatric: normal affect, A&O x 3 Skin: no rash, normal turgor, cap refill <2 seconds Dx/Plan (1) Nausea & vomiting Code(s): R11.2 - NAUSEA WITH VOMITING, UNSPECIFIED Status: Acute Comment: Change Zofran 8mg IV q6h prn, add Phenergan 12.5mg IV q6h prn, clear liquids, likely due to ESRD and initiation of HD (2) ESRD (end stage renal disease) on dialysis Code(s): N18.6 - END STAGE RENAL DISEASE; Z99.2 - DEPENDENCE ON RENAL DIALYSIS Status: Acute Comment: HD initiated 09/22/17, plan for outpt HD with [facility] on d/c, continue HD per Renal recommendations, vein mapping today (3) Chronic anticoagulation Code(s): Z79.01 - FDC (CURRENT) USE OF ANTICOAGULANTS Status: Chronic Comment: supratherapeutic INR s/p 4u FFP, serial INR monitoring (4) Anemia in CKD (chronic kidney disease) Code(s): N18.9 - CHRONIC KIDNEY DISEASE, UNSPECIFIED; D63.1 - ANEMIA IN CHRONIC KIDNEY DISEASE Status: Chronic Comment: Serial H/H, stable hemoglobin currently and no evidence of acute blood loss (5) HTN (hypertension) Code(s): I10 - ESSENTIAL (PRIMARY) HYPERTENSION Status: Chronic Qualifiers: Hypertension type: essential hypertension Qualified Code(s): I10 - Essential (primary) hypertension Comment: Improved after initiating HD, serial monitoring, continue Minoxidil, Nifedipine and Hydralazine - Plan plan discussed w/ family, PT/OT, social work job titles, out of bed/ambulate, DVT proph w/SCDs Continue supportive mgmt -: Zofran and Phenergan for N/V -: HD per Renal service -: CM to assist with outpt coordination of HD -: PT for ambulation * AM lab: PT/INR, BMP
[2017-09-24] MEDS ORDERED: Promethazine HCl 25 MG/ML VIAL IM/IV PRN (16:33)
[2017-09-24] MEDS: Atorvastatin Calcium 10 MG TAB PO SCH (21:12)
[2017-09-24] MEDS: Ondansetron ODT 4 MG TAB PO PRN (21:16)
[2017-09-25 05:59] LABS: Anion Gap 14 mmol/L (10-20); BUN (Urea Nitrogen) 39 mg/dL (9.8-20.1); Calc. Creatinine Clearance 8 mL/min (70-130); Calcium 9.4 mg/dL (7.8-10.44); Carbon Dioxide 29 mmol/L (23-31); Chloride 98 mmol/L (98-107); Estimated GFR-MDRD 9; Glucose 115 mg/dL (83-110); Potassium 4.1 mmol/L (3.5-5.1); Sodium 137 mmol/L (136-145)
--- NOTE | 2017-09-25 07:29 | PRG ---
DATE OF SERVICE: 09/25/2017 SERVICE: Renal Medicine. SUBJECTIVE: Ms. Huang is an 87-year-old white female who was admitted for uremic signs and symp toms. We initiated hemodialysis with this patient. This morning, she is feeling better. Yesterday, she had several episodes of nausea and vomiting, but this morning she feels much improved. No compl aints of chest pain or shortness of breath. She has been undergoing dialysis without any difficulty. PHYSICAL EXAMINATION: VITAL SIGNS: Blood pressure 128/53, heart rate 89, respiratory rate 15, temperature 98, pulse ox 92% . GENERAL: Awake, alert, comfortable, not in distress. SKIN: Adequate turgor. HEENT: She has pinkish conjunctivae, anicteric sclerae. NECK: No neck mass, no carotid bruits, no JVD. CHEST: No deformities. LUNGS: Clear breath sounds. HEART: Normal sinus rhythm. No murmur, no gallops, no rubs. ABDOMEN: Globular, soft, nontender, no masses. EXTREMITIES: No edema. MEDICATIONS: Of 09/25/2017 was reviewed. LABORATORY DATA: Of 09/25/2017, sodium 137, potassium 4.1, chloride 98, carbon dioxide 29, BUN 39, c reatinine 4.45, glucose 115, calcium 9.4. On 09/24/2017, hemoglobin 10. ASSESSMENT AND PLAN: 1. End-stage renal disease/chronic renal failure, stable. Tolerating current hemodialysis. My plan is to do hemodialysis for 3 hours tomorrow and then place her on 3 times a week hemodialysis regimen . We are currently awaiting outpatient dialysis placement. 2. Hypertension, much improved. Continue current blood pressure medications. 3. Nausea and vomiting - much improved with Phenergan and p.r.n. Zofran. Overall, prognosis remains guarded with this patient. Agree with current management. Recheck base m et and CBC in a.m.
[2017-09-25] MEDS: Nitroglycerin 2% Ointment 1 INCH/1 GM Packet TOP SCH ×2 (09:10→21:33)
[2017-09-25] MEDS: Minoxidil 2.5 MG TAB PO SCH (09:11)
[2017-09-25] MEDS: NIFEdipine XL 60 MG TAB PO SCH ×2 (09:11→21:33)
[2017-09-25] MEDS: Fenofibrate 48 MG TAB PO SCH (09:11)
[2017-09-25] MEDS: Docusate 100 MG CAP PO SCH ×2 (09:12→21:33)
[2017-09-25] MEDS: Sevelamer Carbonate 800 MG TAB PO SCH ×3 (09:21→17:52)
[2017-09-25] MEDS: Ondansetron ODT 4 MG TAB PO PRN (11:28)
[2017-09-25] MEDS: hydrALAZINE 25 MG TAB PO SCH ×2 (11:33→21:32)
--- NOTE | 2017-09-25 12:15 | PDOC.PN ---
- Subjective Encounter Start Date: 09/25/17 Encounter Start Time: 08:20 Pt seen for followup re: nausea and vomiting. Denies chest pain. Nausea is better. - Objective Resuscitation Status: Resuscitation Status FULL:Full Resuscitation MAR Reviewed: Yes Vital Signs & Weight: Vital Signs (12 hours) Temp Pulse Resp BP Pulse Ox 09/25/17 11:33 78 09/25/17 10:50 97.9 F 78 12 133/64 94 L 09/25/17 09:11 82 09/25/17 08:12 98.5 F 82 16 133/62 92 L 09/25/17 07:42 98.0 F 89 15 09/25/17 04:05 98.0 F 89 15 128/53 L 92 L Weight Admit Weight 117 lb 8 oz Weight 117 lb 11.2 oz I&O: 09/24/17 09/25/17 09/26/17 06:59 06:59 06:59 Intake Total 240 840 Output Total 400 1000 Balance -160 -160 Result Diagrams: 09/28/17 04:39 09/28/17 04:39 Additional Labs: Labs reviewed by me Phys Exam - Physical Examination appears malnourished HEENT: moist MMs, sclera anicteric, oral pharynx no lesions, 2+ tonsils Neck: no nodes, no JVD, supple, full ROM Respiratory: no wheezing, no rales, no rhonchi, clear to auscultation bilateral Cardiovascular: RRR, no rub S1, S2 Gastrointestinal: soft, non-tender, no distention, positive bowel sounds Neurological: moves all 4 limbs Psychiatric: normal affect, A&O x 3 Dx/Plan (1) Nausea & vomiting Code(s): R11.2 - NAUSEA WITH VOMITING, UNSPECIFIED Status: Acute Comment: Improved, continue Zofran prn, likely a result of uremia, ESRD and demand ischemia (2) ESRD (end stage renal disease) on dialysis Code(s): N18.6 - END STAGE RENAL DISEASE; Z99.2 - DEPENDENCE ON RENAL DIALYSIS Status: Acute Comment: HD initiated 09/22/17, considering d/c of HD due to side effects (3) Hx pulmonary embolism Code(s): Z86.711 - PERSONAL HISTORY OF PULMONARY EMBOLISM Status: Chronic Comment: warfarin on hold (4) HTN (hypertension) Code(s): I10 - ESSENTIAL (PRIMARY) HYPERTENSION Status: Chronic Qualifiers: Hypertension type: essential hypertension Qualified Code(s): I10 - Essential (primary) hypertension Comment: controlled, hypotension noted in last 24h, modify dosing regimen and likely will benefit from spreading dosing intervals over the day - Plan * . Review of Systems - Review of Systems Constitutional: negative: fever, chills, sweats, weakness, malaise Cardiovascular: negative: chest pain, palpitations, orthopnea, paroxysmal nocturnal dyspnea, edema, light headedness Gastrointestinal: Nausea. negative: Vomiting, Abdominal Pain, Diarrhea, Constipation, Melena, Hematochezia Genitourinary: negative: Dysuria, Frequency, Incontinence, Hematuria, Retention Skin: negative: Rash, Lesions, Andrea, Bruising - Medications/Allergies Allergies/Adverse Reactions: Allergies Allergy/AdvReac Type Severity Reaction Status Date / Time Penicillins Allergy Verified 07/06/15 17:13 Medications: Current Medications Acetaminophen (Tylenol) 650 mg PO Q4H PRN PRN Reason: Headache/Fever or Pain Last Admin: 09/22/17 22:30 Dose: 650 mg Acetaminophen (Tylenol) 650 mg RI Q4H PRN PRN Reason: Headache/Fever or Pain Alprazolam (Xanax) 0.25 mg PO HS PRN PRN Reason: Anxiety Last Admin: 09/23/17 00:20 Dose: 0.25 mg Atorvastatin Calcium (Lipitor) 10 mg PO HS [facility] Last Admin: 09/24/17 21:12 Dose: 10 mg Bisacodyl (Dulcolax) 10 mg PO DAILYPRN PRN PRN Reason: Constipation Docusate Sodium (Colace) 100 mg PO BID [facility] Last Admin: 09/25/17 09:12 Dose: Not Given Fenofibrate (Tricor) 48 mg PO DAILY [facility] Last Admin: 09/25/17 09:11 Dose: 48 mg Hydralazine HCl (Apresoline) 10 mg SLOW IVP Q4H PRN PRN Reason: Hypertension Last Admin: 09/23/17 00:20 Dose: 10 mg Hydralazine HCl (Apresoline) 50 mg PO BID [facility] Last Admin: 09/25/17 11:33 Dose: Not Given Levofloxacin 500 mg/ Device 100 mls @ 100 mls/hr IVPB ONCALL-OR [facility] Clindamycin Phosphate/Dextrose (900 mg/ Device) 50 mls @ 100 mls/hr IVPB ONCALL -OR [facility] Isosorbide Mononitrate (Imdur) 120 mg PO DAILY [facility] Last Admin: 09/25/17 09:11 Dose: 120 mg Minoxidil (Minoxidil) 2.5 mg PO DAILY [facility] Last Admin: 09/25/17 09:11 Dose: 2.5 mg Nifedipine (Procardia Xl) 60 mg PO BID [facility] Last Admin: 09/25/17 09:11 Dose: 60 mg Nitroglycerin (Nitro-Bid 2% Ointment) 1 inch TOP BID [facility] Last Admin: 09/25/17 09:10 Dose: 1 inch Read Ppd Test Site 0 each PO 1800 [facility] Stop: 09/26/17 18:00 Ondansetron HCl (Zofran Odt) 4 mg PO Q6H PRN PRN Reason: Nausea/Vomiting Last Admin: 09/25/17 11:28 Dose: 4 mg Ondansetron HCl (Zofran) 4 mg IVP Q6H PRN PRN Reason: Nausea/Vomiting Last Admin: 09/24/17 13:56 Dose: 4 mg Promethazine HCl (Phenergan) 12.5 mg IM/IV Q6H PRN PRN Reason: Nausea/Vomiting Last Admin: 09/24/17 18:03 Dose: 12.5 mg Sevelamer Carbonate (Renvela) 800 mg PO TID-WM [facility] Last Admin: 09/25/17 11:27 Dose: 800 mg Sodium Chloride (Flush - Normal Saline) 10 ml IVF Q12HR [facility] Last Admin: 09/24/17 21:19 Dose: 10 ml Sodium Chloride (Flush - Normal Saline) 10 ml IVF PRN PRN PRN Reason: Saline Flush
[2017-09-25] MEDS ORDERED: Morphine 4 MG/ML VIAL ONE (13:42)
[2017-09-25] MEDS: Morphine 4 MG/ML VIAL SLOW IVP SCH ×2 (13:56→14:38)
--- NOTE | 2017-09-25 14:23 | PDOC.EVN ---
Event Note - Event Note Event Note: Pt seen for followup re: chest pain. Complains of retrosternal chest tightness , radiating to epigastrium, 10/10. VS noted. S1, S2, RRR, Lungs CTA. EKG: diffuse T-wave inversions. Transfer pt to telemetry for monitoring, check troponin, consult cardiology.
[2017-09-25] MEDS ORDERED: Nitroglycerin 0.4 MG TAB (25 Tab Bottle) ONE (14:31)
[2017-09-25 14:37] LABS: Troponin I 0.112 ng/mL (< 0.028)
--- NOTE | 2017-09-25 14:38 | RAD ---
ONE VIEW CHEST: History: Pain. Comparison: 09-22-17 FINDINGS: Stable right sided vascular catheter. There is atherosclerosis of the aorta. Normal cardiac silhouett e. The pulmonary vessels and hilum are normal. Costophrenic angles are clear. Hyperinflation without consolidation or mass. No pneumothorax or osseous abnormalities. IMPRESSION: 1. Atherosclerosis. 2. No acute cardiopulmonary process. POS: [facility]
[2017-09-25] MEDS ORDERED: Nitroglycerin 0.4 MG TAB (25 Tab Bottle) SL SCH (14:45)
[2017-09-25] MEDS ORDERED: Morphine 4 MG/ML VIAL SLOW IVP SCH (14:45)
[2017-09-25] MEDS: READ PPD TEST SITE PO SCH (18:14)
[2017-09-25 18:17] LABS: CKMB 1.2 ng/mL (0-6.6); Troponin I 0.102 ng/mL (< 0.028)
[2017-09-25] MEDS: Atorvastatin Calcium 10 MG TAB PO SCH (21:32)
[2017-09-25 21:47] LABS: CKMB 0.8 ng/mL (0-6.6)
[2017-09-25 21:57] LABS: Troponin I 0.092 ng/mL (< 0.028)
--- NOTE | 2017-09-25 22:20 | EKG ---
Test Reason : C/O CHEST PAIN Blood Pressure : / mmHG Vent. Rate : 066 BPM Atrial Rate : 066 BPM P-R Int : 130 ms QRS Dur : 080 ms QT Int : 452 ms P-R-T Axes : -73 -37 -84 degrees QTc Int : 473 ms Unusual P axis and short ME, probable junctional rhythm Consider lead reversal Left axis deviation Prolonged QT Abnormal ECG When compared with ECG of 21-SEP-2017 15:23, (Unconfirmed) Junctional rhythm has replaced Sinus rhythm ST now depressed in Anterior leads T wave inversion more evident in Inferior leads T wave inversion now evident in Anterolateral leads Confirmed by JOSE GALLAGHER, DR. Gentile ([id number]) on 09/25/2017 10:20:12 PM Referred By: GARIMA Confirmed By:DR. Krupa GARCIA MD
--- NOTE | 2017-09-26 01:05 | CON ---
DATE OF CONSULTATION: 09/25/2017 HISTORY: Sandra Huang is an 87-year-old white female admitted for institution of dialysis. She has had worsening renal function ever since she developed high blood pressure 7 or 8 years ago. 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 The two masses removed from her kidney at [facility] apparently were benign. She was admitted with increased fatigue and shortness of breath with exertion and to start dialysis. She also states that she has chest pressure at home. These episodes are not related to exertion. She is uncertain how often they occur or how long it last. She had a similar type episode today while in bed. The patient had pressure in the lower part of her chest. She states she became diaphoretic, short of breath and had nausea and vomiting. She was given 4 mg of intravenous morphine as well as another 2 mg and she stated that her pain resolved. She is uncertain how long it lasted, but was probably about 10-15 minutes. She was transferred to telemetry with some changes on her EKG as noted below. 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 OPERATIONS: Hysterectomy, right shoulder surgery, partial nephrectomy. MEDICATIONS: At home include; alprazolam 0.25 mg p.r.n. bedtime, clonidine 0.1 mg q.p.m., Lovenox 60 mg daily, fenofibrate 48 mg daily, hydralazine 50 b.i.d., isosorbide mononitrate 120 daily, nifedipine 60 b.i.d., simvastatin 20 at bedtime, and warfarin 5 mg q.p.m. ALLERGIES: PENICILLIN. SOCIAL HISTORY: She does not smoke or drink. Her 4 years ago. FAMILY HISTORY: Negative for coronary artery disease. REVIEW OF SYSTEMS: Twelve point review of systems otherwise unremarkable. PHYSICAL EXAMINATION: VITAL SIGNS: 139/65, pulse of 80, sinus rhythm on the monitor. GENERAL: Very elderly cachectic appearing white female. HEENT: PERRL. NECK: Supple. CHEST: Clear. CARDIAC: S1, S2 normal without any S3, S4 or murmurs. Carotid upstrokes normal without bruits. ABDOMEN: Normal bowel sounds, without tenderness or organomegaly. EXTREMITIES: Revealed no clubbing, cyanosis or edema. NEUROLOGIC: Grossly intact. SKIN: Warm and dry. IMAGING DATA: EKG on admission revealed normal sinus rhythm with poor R-wave progression. EKG apparently while she was having chest pain revealed junctional rhythm with rate of 66 per minute and finding of a new T-wave inversion in II, III, and F and V2 through V6 as compared to her admission EKG. LABORATORY DATA: Hemoglobin 10.0, hematocrit 29.6, white count 9600, platelets 264,000. INR on admission was 3.5 and then 3 days ago was 2.3, has been checked since her warfarin has been held. Sodium 137, potassium 4.1, chloride 98, carbon dioxide 29, BUN 39, creatinine 4.45. On admission, her troponin I was 0.028 and one today is 0.112. IMPRESSION: 1. Probable acute coronary syndrome. She has had a slight bump in her troponin I and does have diffuse T-wave inversion. Her pain has resolved. She apparently also has the same type discomfort at home and is on high dose p.o. long-acting nitrates. 2. End-stage renal disease with dialysis instituted during this admission. 3. Hypertension. 4. History of benign renal mass x2, resected. 5. Hypercholesterolemia. 6. History of deep venous thrombosis and pulmonary embolism 2 years ago on warfarin since that time, although it has been held during this admission. PLAN: The patient will be given aspirin 324 mg chewable and started on Ecotrin 81 daily. Serial cardiac enzymes will be performed. Echo will be performed. Further evaluation will be dictated by the clinical course, although her T-wave changes are worrisome and serious consideration will be given to cardiac catheterization. CHARLES
[2017-09-26 05:07] LABS: #Eosinphils 0.2 thou/uL (0.0-0.7); #Lymphocytes 1.3 thou/uL (1.20-3.40); #Monocytes 1.1 thou/uL (0.11-0.59); #Neutrophils 5.5 thou/uL (1.40-6.50); %Basophils 0.5 % (0.0-1.0); %Eosinophils 2.7 % (0.0-10.0); %Lymphocytes 15.6 % (21.0-51.0); %Monocytes 13.3 % (0.0-10.0); %Neutrophils 67.9 % (42.0-75.0); Hemoglobin 9.7 g/dL (12.0-16.0); Mean Corpuscular Hemoglobin 33.1 pg (27.0-31.0); Mean Corpuscular Volume 97.3 fl (81.0-99.0); Mean Platelet Volume 8.3 fL (7.4-10.4); Platelet Count 288 thou/uL (130-400); RBC Distribution Width 12.3 % (11.5-14.5); Red Blood Cell (RBC) Count 2.92 mill/uL (4.20-5.40)
[2017-09-26 05:14] LABS: INR-International Normal Ratio 1.5; Prothrombin Time 18.6 SEC (12.0-14.7)
[2017-09-26 05:41] LABS: Anion Gap 17 mmol/L (10-20); BUN (Urea Nitrogen) 71 mg/dL (9.8-20.1); Calc. Creatinine Clearance 5 mL/min (70-130); Calcium 9.2 mg/dL (7.8-10.44); Carbon Dioxide 25 mmol/L (23-31); Cardiac Risk 2.7 (Less than 4.5); Chloride 99 mmol/L (98-107); Cholesterol 137 mg/dl (< 200 Desired); Estimated GFR-MDRD 6; Glucose 90 mg/dL (83-110); HDL Cholesterol 50 mg/dL (>60 Neg Risk); LDL Cholesterol, Calculated 74 mg/dL; Potassium 4.2 mmol/L (3.5-5.1); Sodium 137 mmol/L (136-145); Triglycerides 64 mg/dL (Less than 150)
[2017-09-26] MEDS ORDERED: Epoetin (ESRD) 20,000 UNITS/ML SC SCH (10:00)
--- NOTE | 2017-09-26 10:44 | PRG ---
DATE OF SERVICE: 09/26/2017 RENAL MEDICINE SUBJECTIVE: Ms. Huang is an 87-year-old white female who was admitted for uremic signs and symp toms, initiated dialysis. She is currently undergoing hemodialysis today. I am at the bedside super vising dialysis. My plan is to do a 3-hour dialysis. She was also seen by Cardiology, Dr. Escobedo due to the chest pain she is having per se and EKG changes of T-wave inversion. Supportive care is b eing done currently. The possibility of cardiac catheterization remains. She also has some nausea a nd vomiting yesterday. Patient denies any chest pain or shortness of breath today. PHYSICAL EXAMINATION: VITAL SIGNS: Blood pressure is 133/61, heart rate 76, respiratory rate 19, temperature 98.9, pulse o x 94%. GENERAL: Noted to be awake, alert, comfortable, not in overt distress. SKIN: Adequate turgor. HEENT: She has pinkish conjunctivae, anicteric sclerae. NECK: No neck mass, no carotid bruits, no JVD. CHEST: No deformities. LUNGS: Decreased breath sounds. HEART: Normal sinus rhythm. No murmurs, no gallops, no rubs. ABDOMEN: Globular, soft, nontender. No masses. EXTREMITIES: No edema, no deformities. MEDICATIONS: Medications of 09/26/2017 was reviewed. LABORATORY DATA: Laboratories of 09/26/2017; white count 8, hemoglobin 9.7, sodium 137, potassium 4. 2, chloride 99, carbon dioxide 25, BUN 71, creatinine 6.8, glucose 90, calcium 9.2, cholesterol is 13 7. ASSESSMENT AND PLAN: 1. Chronic renal failure/end-stage renal disease - continuing 3 times a week hemodialysis. Fluid re moval only as tolerated. The plan is for 3-hour hemodialysis sessions 3 times a week. 2. Chest pain - clinically resolved. Findings of the EKG changes made. Cardiology is currently branden luating this patient. 3. Borderline anemia. We will continue to observe. If needed, we can initiate Epogen with this pat ient. Recheck base met and CBC in a.m.
--- NOTE | 2017-09-26 12:14 | PDOC.PN ---
- Subjective Encounter Start Date: 09/26/17 Encounter Start Time: 12:05 Subjective: f/u for CP with mild elevation of troponin and diffuse T-wave changes -: 09/25/17. Tx with ASA, Lipitor, Nitrates, Tricor. No new complaints of CP. - Objective Resuscitation Status: Resuscitation Status FULL:Full Resuscitation MAR Reviewed: Yes Vital Signs & Weight: Vital Signs (12 hours) Temp Pulse Resp BP Pulse Ox 09/26/17 08:00 98.9 F 76 19 94 L 09/26/17 07:23 98.9 F 76 19 133/61 94 L 09/26/17 04:06 97.8 F 79 16 119/54 L 6 L Weight Admit Weight 117 lb 8 oz Weight 104 lb 1.6 oz I&O: 09/25/17 09/26/17 09/27/17 06:59 06:59 06:59 Intake Total 840 240 Output Total 1000 300 Balance -160 -60 Result Diagrams: 09/26/17 04:33 09/26/17 04:33 Additional Labs: Laboratory Tests 07/12/15 09/21/17 09/21/17 04:05 15:34 15:34 Hgb PT 21.3 H INR 1.8 3.5 Creatinine 6.39 H Phosphorus Magnesium Troponin I Triglycerides Cholesterol LDL Cholesterol, Calc HDL Cholesterol 09/21/17 09/21/17 09/21/17 15:34 15:36 15:36 Hgb 9.4 L PT INR Creatinine Phosphorus 6.3 H Magnesium 2.3 Troponin I 0.028 Triglycerides Cholesterol LDL Cholesterol, Calc HDL Cholesterol 09/22/17 09/23/17 09/23/17 07:39 03:46 03:46 Hgb 10.1 L PT INR 2.3 Creatinine Phosphorus 4.7 Magnesium Troponin I Triglycerides Cholesterol LDL Cholesterol, Calc HDL Cholesterol 09/24/17 09/25/17 09/25/17 03:50 04:46 14:01 Hgb 10.0 L PT INR Creatinine 4.45 H Phosphorus Magnesium Troponin I 0.112 H Triglycerides Cholesterol LDL Cholesterol, Calc HDL Cholesterol 09/25/17 09/25/17 09/26/17 17:46 21:16 04:33 Hgb PT 18.6 H INR 1.5 Creatinine Phosphorus Magnesium Troponin I 0.102 H 0.092 H Triglycerides Cholesterol LDL Cholesterol, Calc HDL Cholesterol 09/26/17 04:33 Hgb PT INR Creatinine Phosphorus Magnesium Troponin I Triglycerides 64 Cholesterol 137 LDL Cholesterol, Calc 74 HDL Cholesterol 50 Radiology Reviewed by me: Yes (PCXR - no acute infiltrates) EKG Reviewed by me: Yes (Tele - SR, 13 beats SVT noted) Phys Exam - Physical Examination Constitutional: NAD HEENT: PERRLA, moist MMs, sclera anicteric, oral pharynx no lesions Neck: no nodes, no JVD, supple, full ROM Respiratory: no wheezing, no rales, no rhonchi, clear to auscultation bilateral S1, S2 Cardiovascular: RRR, no significant murmur, no rub, gallop Gastrointestinal: soft, non-tender, no distention, positive bowel sounds Musculoskeletal: no edema, pulses present Neurological: non-focal, normal sensation, moves all 4 limbs Psychiatric: normal affect, A&O x 3 Skin: no rash, normal turgor, cap refill <2 seconds Dx/Plan (1) Nausea & vomiting Code(s): R11.2 - NAUSEA WITH VOMITING, UNSPECIFIED Status: Acute Comment: Resolved, continue supprotive mgmt (2) ESRD (end stage renal disease) on dialysis Code(s): N18.6 - END STAGE RENAL DISEASE; Z99.2 - DEPENDENCE ON RENAL DIALYSIS Status: Acute Comment: HD initiated 09/22/17, coordination for oupt HD (3) Chronic anticoagulation Code(s): Z79.01 - SPINNER IRON (CURRENT) USE OF ANTICOAGULANTS Status: Chronic Comment: supratherapeutic INR s/p 4u FFP, serial INR monitoring, stable currently (4) Anemia in CKD (chronic kidney disease) Code(s): N18.9 - CHRONIC KIDNEY DISEASE, UNSPECIFIED; D63.1 - ANEMIA IN CHRONIC KIDNEY DISEASE Status: Chronic Comment: Serial H/H, stable hemoglobin currently and no evidence of acute blood loss (5) HTN (hypertension) Code(s): I10 - ESSENTIAL (PRIMARY) HYPERTENSION Status: Chronic Qualifiers: Hypertension type: essential hypertension Qualified Code(s): I10 - Essential (primary) hypertension Comment: controlled (6) Elevated troponin I level Code(s): R74.8 - ABNORMAL LEVELS OF OTHER SERUM ENZYMES Status: Acute Comment: Likely demand ischemia in context of ESRD, continue ASA, Lipitor, Nitrates (7) Physical deconditioning Code(s): R53.81 - OTHER MALAISE Status: Acute Comment: PT for ambulation, ? HH vs SNF - Plan plan discussed w/ family, PT/OT, social services manager, out of bed/ambulate, DVT proph w/SCDs Stable overall -: Continue HD per Renal service -: CM for coordination of oupt HD -: Continue ASA, Lipitor -: 2D echo pending * AM lab: BMP, CBC
[2017-09-26] MEDS: hydrALAZINE 25 MG TAB PO SCH ×2 (13:00→20:41)
[2017-09-26] MEDS: Minoxidil 2.5 MG TAB PO SCH (13:00)
[2017-09-26] MEDS: Sevelamer Carbonate 800 MG TAB PO SCH ×3 (13:00→18:33)
[2017-09-26] MEDS: Aspirin 81 mg Enteric Coated Tablet PO SCH (13:01)
[2017-09-26] MEDS: NIFEdipine XL 60 MG TAB PO SCH ×2 (13:01→20:42)
[2017-09-26] MEDS: Docusate 100 MG CAP PO SCH ×2 (13:01→20:41)
[2017-09-26] MEDS: Nitroglycerin 2% Ointment 1 INCH/1 GM Packet TOP SCH ×2 (13:03→20:42)
[2017-09-26] MEDS: Fenofibrate 48 MG TAB PO SCH (13:03)
[2017-09-26] MEDS: Ondansetron ODT 4 MG TAB PO PRN ×2 (13:40→17:44)
[2017-09-26] MEDS: Acetaminophen 325 MG TAB PO PRN (13:59)
[2017-09-26] MEDS ORDERED: Sodium Chloride 0.9% 500 ML IV SCH (14:45)
[2017-09-26] MEDS: Morphine 4 MG/ML VIAL SLOW IVP PRN ×2 (16:05→23:33)
[2017-09-26] MEDS: READ PPD TEST SITE PO SCH (18:40)
--- NOTE | 2017-09-26 20:09 | PDOC.GSPN ---
Surgery Progress Note: Subj - Subjective Narrative: Patient states she feels terrible. Hemodialysis has been very hard on her. Catheter site looks good. Patient very weak and unsteady, requiring assistance to transfer. A/P) Patient not tolerating dialysis well thus far. I'll see her in clinic in a couple weeks to see if she plans to continue with diallysis. If she does, we'll schedule a left AVF as an outpatient. Surgery Progress Note: Obj - Vital signs Vital signs: Vital Signs - Most Recent Temp Pulse Resp BP Pulse Ox 98.9 F 76 19 133/61 94 L 09/26/17 08:00 09/26/17 08:00 09/26/17 08:00 09/26/17 07:23 09/26/17 08:00 Surgery Progress Note: Results - Labs Result Diagrams: 09/26/17 04:33 09/26/17 04:33
[2017-09-26] MEDS: Promethazine HCl 12.5 MG in Sodium Chloride 0.9% 50 ML IVPB PRN (20:12)
[2017-09-26] MEDS: Atorvastatin Calcium 10 MG TAB PO SCH (20:41)
[2017-09-27 00:36] LABS: ALT (SGPT) 13 U/L (8-55); AST (SGOT) 19 U/L (5-34); Alkaline Phosphatase 65 U/L (40-150); Anion Gap 21 mmol/L (10-20); BUN (Urea Nitrogen) 47 mg/dL (9.8-20.1); Bilirubin, Total 0.8 mg/dL (0.2-1.2); Calc. Creatinine Clearance 6 mL/min (70-130); Calcium 9.8 mg/dL (7.8-10.44); Carbon Dioxide 21 mmol/L (23-31); Chloride 102 mmol/L (98-107); Estimated GFR-MDRD 8; Globulin 3.6 g/dL (2.4-3.5); Glucose 134 mg/dL (83-110); Potassium 4.1 mmol/L (3.5-5.1); Protein, Total 7.6 g/dL (6.0-8.3); Sodium 140 mmol/L (136-145)
[2017-09-27 05:33] LABS: #Lymphocytes 0.9 thou/uL (1.20-3.40); #Monocytes 1.2 thou/uL (0.11-0.59); #Neutrophils 6.3 thou/uL (1.40-6.50); %Basophils 0.2 % (0.0-1.0); %Eosinophils 0.3 % (0.0-10.0); %Lymphocytes 10.7 % (21.0-51.0); %Monocytes 14.1 % (0.0-10.0); %Neutrophils 74.6 % (42.0-75.0); Mean Corpuscular HGB CONC 32.9 g/dL (32.0-36.0); Mean Corpuscular Hemoglobin 31.5 pg (27.0-31.0); Mean Corpuscular Volume 95.8 fl (81.0-99.0); Mean Platelet Volume 8.3 fL (7.4-10.4); Platelet Count 294 thou/uL (130-400); RBC Distribution Width 12.2 % (11.5-14.5); Red Blood Cell (RBC) Count 3.16 mill/uL (4.20-5.40); White Blood Cell (WBC) Count 8.4 thou/uL (4.8-10.8)
[2017-09-27 06:10] LABS: Anion Gap 19 mmol/L (10-20); BUN (Urea Nitrogen) 55 mg/dL (9.8-20.1); Calc. Creatinine Clearance 5 mL/min (70-130); Calcium 9.5 mg/dL (7.8-10.44); Carbon Dioxide 21 mmol/L (23-31); Chloride 104 mmol/L (98-107); Estimated GFR-MDRD 7; Glucose 110 mg/dL (83-110); Potassium 4.7 mmol/L (3.5-5.1); Sodium 139 mmol/L (136-145)
[2017-09-27] MEDS: Fenofibrate 48 MG TAB PO SCH (08:25)
[2017-09-27] MEDS: NIFEdipine XL 60 MG TAB PO SCH (08:25)
[2017-09-27] MEDS: Docusate 100 MG CAP PO SCH ×2 (08:26→21:06)
[2017-09-27] MEDS: Aspirin 81 mg Enteric Coated Tablet PO SCH (08:26)
[2017-09-27] MEDS: Minoxidil 2.5 MG TAB PO SCH (08:27)
--- NOTE | 2017-09-27 09:04 | RAD ---
ABDOMEN ONE VIEW: HISTORY: Pain. FINDINGS: Nonspecific bowel gas pattern. Surgical clips are noted in the right upper quadrant. No suspicious densities in the abdomen or pelvis. IMPRESSION: Nonspecific bowel gas pattern. POS: LORE[facility]
[2017-09-27] MEDS: Sevelamer Carbonate 800 MG TAB PO SCH ×3 (09:06→17:12)
[2017-09-27] MEDS: Nitroglycerin 2% Ointment 1 INCH/1 GM Packet TOP SCH ×2 (12:43→21:06)
[2017-09-27] MEDS: hydrALAZINE 25 MG TAB PO SCH ×2 (12:43→21:06)
--- NOTE | 2017-09-27 12:43 | PRG ---
DATE OF SERVICE: 09/27/2017 RENAL MEDICINE SUBJECTIVE: Ms. Huang is an 87-year-old white female who was initiated with hemodialysis due to uremic signs and symptoms. She underwent hemodialysis yesterday for short 3 hours. Minimal fluid w as removed with this patient. She tolerated said treatment. However, at the end of the day after ea ting, she developed nausea and vomiting. Please note that the patient has been having persistent anita sea and vomiting in spite of no dialysis on certain days. Due to the persistent nausea and vomiting, we will be consulting GI for further input. She voices no chest pain, shortness of breath today. PHYSICAL EXAMINATION: VITAL SIGNS: Blood pressure is 146/68, heart rate 77, respiratory rate 20, temperature 98.6, and pul se ox 98%. GENERAL: Awake, alert, comfortable, not in distress. SKIN: Adequate turgor. HEENT: Pinkish conjunctivae, anicteric sclerae. NECK: No neck mass, no carotid bruits, no JVD. CHEST: No deformities. LUNGS: Clear breath sounds. HEART: Normal sinus rhythm. No murmurs, no gallops, no rubs. ABDOMEN: Globular, soft, nontender, no masses. EXTREMITIES: No edema. MEDICATIONS: Medications of 09/27/2017 was reviewed. LABORATORY DATA: Laboratories of 09/27/2017; white count 8.4, hemoglobin 10. Sodium 139, potassium 4.7, chloride 104, carbon dioxide 21, BUN 65, creatinine 5.62, glucose 110, calcium 9.5, albumin is 4 .0. ASSESSMENT AND PLAN: 1. Nausea and vomiting - supportive care on p.r.n. Zofran and Phenergan. X-ray of the abdomen is cu rrently pending. 2. Chronic renal failure/end-stage renal disease - received 3-hour hemodialysis yesterday. I have p lanned to do no dialysis today. We will hold off dialysis for few days. We will resume it on if the patient still wants to pursue hemodialysis. 3. Labile hypertension, stable, much improved. 4. Anemia, on weekly Epogen. Recheck base met and CBC in a.m.
--- NOTE | 2017-09-27 16:14 | CON ---
DATE OF CONSULTATION: 09/27/2017 HISTORY OF PRESENT ILLNESS: The patient is an 87-year-old female who has been in the [facility] since 09/21/2017. She has a known history of chronic renal insufficiency and has progressed to e nd-stage renal disease. She has recently started hemodialysis and underwent her first full length di alysis yesterday. She reports some nausea and vomiting and unable to keep any food down. She also r eports some abdominal pain. When asking about the abdominal pain, she points to multiple areas of he r abdomen. Today, she seems to be feeling better and is less nauseated and having less pain. She de nies any melena, hematochezia. She has lost a large amount of weight, but she cannot quantify that a mount of weight. PAST MEDICAL HISTORY: Hypertension, hyperlipidemia, end-stage renal disease, deep venous thrombosis and pulmonary embolism. PAST SURGICAL HISTORY: Includes a hysterectomy, partial nephrectomy, shoulder surgery. SOCIAL HISTORY: She does not smoke or drink. FAMILY HISTORY: Negative for gastrointestinal or liver disease. HOME MEDICATIONS: Isosorbide mononitrate 120 mg p.o. daily, fenofibrate 48 mg p.o. daily, Lovenox 60 subcu q.a.m., alprazolam 0.25 mg p.o. at bedtime p.r.n., simvastatin 20 mg p.o. at bedtime, nifedipi ne 60 mg p.o. b.i.d., Coumadin 5 mg p.o. q.p.m., hydralazine 50 mg p.o. b.i.d., clonidine 0.1 mg p.o. q.p.m. ALLERGIES: PENICILLIN. REVIEW OF SYSTEMS: CONSTITUTIONAL: No fever or chills. Positive weight loss. EYES: No blurred vision or double vision. ENT: No sore throat or earaches. CARDIOVASCULAR: No chest pain or palpitations. PULMONARY: No shortness of breath, cough or wheezing. GASTROINTESTINAL: See above. : No hematuria or dysuria. MUSCULOSKELETAL: No joint pain or muscle weakness. SKIN: No rashes. NEUROLOGIC: No numbness or seizure activity. PHYSICAL EXAMINATION: VITAL SIGNS: Temperature 98.9, pulse 80, respiratory rate 20, blood pressure 120/60. HEENT: Unremarkable. NECK: Supple. CHEST: Clear. CARDIOVASCULAR: Regular rate and rhythm. ABDOMEN: Scaphoid, nontender without organomegaly or masses. RECTAL: Deferred. EXTREMITIES: Normal. NEUROLOGIC: Nonfocal. LABORATORY: Shows a hemoglobin of 10, hematocrit 30.3, white blood cell count 8.4. PT is 18.6 with an INR of 1.5. BUN is 55 with a creatinine of 5.62. LFTs were normal. Urinalysis negative. Abdomi nal x-rays performed today showed nonspecific bowel gas pattern. ASSESSMENT: 1. Abdominal pain of unknown etiology -- this could be related to the patient's dry heaving. 2. Persistent nausea and vomiting -- this could be a manifestation of the patient's uremia. 3. End-stage renal disease. RECOMMENDATIONS: We will continue to observe and monitor and see how she does with her dialysis. If her symptoms persist, may need to do some sort of imaging.
--- NOTE | 2017-09-27 17:35 | PDOC.PN ---
- Subjective Encounter Start Date: 09/27/17 Encounter Start Time: 17:25 Subjective: f/u for ESRD on HD and recurrent N/V. Overall feels better today and -: tolerating po intake. Abd radiograph negative. Contemplating not continuing -: HD. Would like to pursue SNF options. - Objective Resuscitation Status: Resuscitation Status DNR:Do Not Resuscitate MAR Reviewed: Yes Vital Signs & Weight: Vital Signs (12 hours) Temp Pulse Pulse Pulse Resp BP BP 09/27/17 16:10 98.2 F 72 16 09/27/17 14:30 75 77 135/62 09/27/17 12:35 98.9 F 80 20 09/27/17 09:15 98.6 F 77 20 09/27/17 08:25 77 146/68 H 09/27/17 07:42 98.6 F 77 20 BP BP Pulse Ox 09/27/17 16:10 140/63 92 L 09/27/17 14:30 119/58 L 09/27/17 12:35 120/60 95 09/27/17 09:15 98 09/27/17 08:25 09/27/17 07:42 146/68 H 98 Weight Admit Weight 117 lb 8 oz Weight 108 lb I&O: 09/26/17 09/27/17 09/28/17 06:59 06:59 06:59 Intake Total 240 550 Output Total 300 1950 Balance -60 -1400 Result Diagrams: 09/27/17 04:36 09/27/17 04:36 Additional Labs: Laboratory Tests 07/12/15 09/21/17 09/21/17 04:05 15:34 15:34 Hgb PT 21.3 H INR 1.8 3.5 Creatinine 6.39 H Phosphorus Magnesium Troponin I Triglycerides Cholesterol LDL Cholesterol, Calc HDL Cholesterol 09/21/17 09/21/17 09/21/17 15:34 15:36 15:36 Hgb 9.4 L PT INR Creatinine Phosphorus 6.3 H Magnesium 2.3 Troponin I 0.028 Triglycerides Cholesterol LDL Cholesterol, Calc HDL Cholesterol 09/22/17 09/23/17 09/23/17 07:39 03:46 03:46 Hgb 10.1 L PT INR 2.3 Creatinine Phosphorus 4.7 Magnesium Troponin I Triglycerides Cholesterol LDL Cholesterol, Calc HDL Cholesterol 09/24/17 09/25/17 09/25/17 03:50 04:46 14:01 Hgb 10.0 L PT INR Creatinine 4.45 H Phosphorus Magnesium Troponin I 0.112 H Triglycerides Cholesterol LDL Cholesterol, Calc HDL Cholesterol 09/25/17 09/25/17 09/26/17 17:46 21:16 04:33 Hgb PT 18.6 H INR 1.5 Creatinine Phosphorus Magnesium Troponin I 0.102 H 0.092 H Triglycerides Cholesterol LDL Cholesterol, Calc HDL Cholesterol 09/26/17 04:33 Hgb PT INR Creatinine Phosphorus Magnesium Troponin I Triglycerides 64 Cholesterol 137 LDL Cholesterol, Calc 74 HDL Cholesterol 50 Radiology Reviewed by me: Yes (2D echo - EF 55-60%, mod MR, diast dysfxn) EKG Reviewed by me: Yes (Tele - SR) Phys Exam - Physical Examination Constitutional: NAD HEENT: PERRLA, moist MMs, sclera anicteric, oral pharynx no lesions Neck: no nodes, no JVD, supple Respiratory: no wheezing, no rales, no rhonchi, clear to auscultation bilateral S1, S2 Cardiovascular: RRR, no significant murmur, no rub, gallop Gastrointestinal: soft, non-tender, no distention, positive bowel sounds Musculoskeletal: no edema, pulses present Neurological: non-focal, normal sensation, moves all 4 limbs Psychiatric: normal affect, A&O x 3 Skin: no rash, normal turgor, cap refill <2 seconds Dx/Plan (1) Nausea & vomiting Code(s): R11.2 - NAUSEA WITH VOMITING, UNSPECIFIED Status: Acute Comment: Improved, continue Zofran prn, likely a result of uremia (2) ESRD (end stage renal disease) on dialysis Code(s): N18.6 - END STAGE RENAL DISEASE; Z99.2 - DEPENDENCE ON RENAL DIALYSIS Status: Acute Comment: HD initiated 09/22/17, considering d/c of HD due to side effects and recurrent N/V (3) Chronic anticoagulation Code(s): Z79.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 Status: Chronic Comment: supratherapeutic INR s/p 4u FFP, serial INR monitoring, stable currently (4) Anemia in CKD (chronic kidney disease) Code(s): N18.9 - CHRONIC KIDNEY DISEASE, UNSPECIFIED; D63.1 - ANEMIA IN CHRONIC KIDNEY DISEASE Status: Chronic Comment: Serial H/H, stable hemoglobin currently and no evidence of acute blood loss (5) HTN (hypertension) Code(s): I10 - ESSENTIAL (PRIMARY) HYPERTENSION Status: Chronic Qualifiers: Hypertension type: essential hypertension Qualified Code(s): I10 - Essential (primary) hypertension Comment: controlled, hypotension noted in last 24h, modify dosing regimen and likely will benefit from spreading dosing intervals over the day (6) Elevated troponin I level Code(s): R74.8 - ABNORMAL LEVELS OF OTHER SERUM ENZYMES Status: Acute Comment: Likely demand ischemia in context of ESRD, continue ASA, Lipitor, Nitrates (7) Physical deconditioning Code(s): R53.81 - OTHER MALAISE Status: Acute Comment: PT for ambulation, ? HH vs SNF - Plan plan discussed w/ family, PT/OT, director social welfare, out of bed/ambulate, DVT proph w/SCDs Stable overall -: Decrease Hydralazine 25mg BID -: Continue Epo q7 days -: Continue Metoprolol 50mg BID -: Continue Nifedipine 60mg daily * CM for SNF options * AM lab: BMP, CBC
[2017-09-27 18:12] LABS: Hemoglobin 10.2 g/dL (12.0-16.0); Platelet Count 275 thou/uL (130-400)
[2017-09-27] MEDS: Atorvastatin Calcium 20 MG TAB PO SCH (21:06)
[2017-09-27] MEDS: Metoprolol Tartrate 50 MG TAB PO SCH (21:06)
[2017-09-28 05:53] LABS: Anion Gap 17 mmol/L (10-20); BUN (Urea Nitrogen) 82 mg/dL (9.8-20.1); Calc. Creatinine Clearance 4 mL/min (70-130); Calcium 9.2 mg/dL (7.8-10.44); Carbon Dioxide 22 mmol/L (23-31); Chloride 101 mmol/L (98-107); Estimated GFR-MDRD 5; Glucose 87 mg/dL (83-110); Potassium 4.1 mmol/L (3.5-5.1); Sodium 136 mmol/L (136-145)
[2017-09-28 05:55] LABS: #Eosinphils 0.3 thou/uL (0.0-0.7); #Lymphocytes 1.6 thou/uL (1.20-3.40); #Monocytes 0.8 thou/uL (0.11-0.59); #Neutrophils 4.2 thou/uL (1.40-6.50); %Basophils 0.6 % (0.0-1.0); %Eosinophils 3.9 % (0.0-10.0); %Lymphocytes 22.9 % (21.0-51.0); %Monocytes 12.2 % (0.0-10.0); %Neutrophils 60.3 % (42.0-75.0); Hemoglobin 9.7 g/dL (12.0-16.0); Mean Corpuscular HGB CONC 33.4 g/dL (32.0-36.0); Mean Corpuscular Hemoglobin 32.1 pg (27.0-31.0); Mean Platelet Volume 8.6 fL (7.4-10.4); Platelet Count 274 thou/uL (130-400); RBC Distribution Width 12.1 % (11.5-14.5); Red Blood Cell (RBC) Count 3.01 mill/uL (4.20-5.40); White Blood Cell (WBC) Count 6.9 thou/uL (4.8-10.8)
[2017-09-28] MEDS: Sevelamer Carbonate 800 MG TAB PO SCH ×3 (08:32→17:32)
[2017-09-28] MEDS: Enoxaparin Sodium 60 MG/0.6 ML SYRINGE SC SCH (08:33)
[2017-09-28] MEDS: Docusate 100 MG CAP PO SCH ×2 (08:33→21:03)
[2017-09-28] MEDS: hydrALAZINE 25 MG TAB PO SCH ×2 (08:33→21:03)
[2017-09-28] MEDS: Fenofibrate 48 MG TAB PO SCH (08:33)
[2017-09-28] MEDS: Aspirin 81 mg Enteric Coated Tablet PO SCH (08:33)
[2017-09-28] MEDS: Nitroglycerin 2% Ointment 1 INCH/1 GM Packet TOP SCH ×2 (08:34→21:05)
[2017-09-28] MEDS: Metoprolol Tartrate 50 MG TAB PO SCH ×2 (08:34→21:05)
[2017-09-28] MEDS: NIFEdipine XL 60 MG TAB PO SCH (08:34)
[2017-09-28] MEDS: Minoxidil 2.5 MG TAB PO SCH (08:34)
--- NOTE | 2017-09-28 11:28 | PDOC.CTH ---
Cardiology Progress Note - Subjective Awake, multiple family members at bedside. Denies chest pain, shortness of breath, N/V/D. Ambulating in room, working with PT. No overnight events. - Objective Vital Signs Temp Pulse Resp BP BP Pulse Ox 09/28/17 08:07 98.4 F 59 L 18 94 L 09/28/17 08:00 98.4 F 59 L 18 139/63 94 L 09/28/17 04:00 98.8 F 56 L 15 130/55 L 94 L 09/27/17 23:30 126/58 L Admit Weight 117 lb 8 oz Weight 108 lb 09/27/17 09/28/17 09/29/17 06:59 06:59 06:59 Intake Total 550 Output Total 1950 50 Balance -1400 -50 - Physical Examination General/Neuro: alert & oriented x3, NAD Neck: no JVD present Lungs: CTA, unlabored respirations Heart: RRR Abdomen: NT/ND - Telemetry Telemetry Rhythm: JR, SR - Labs Result Diagrams: 09/28/17 04:39 09/28/17 04:39 Troponin/CKMB CK-MB (CK-2) 0.8 ng/mL (0-6.6) 09/25/17 21:16 Troponin I 0.092 ng/mL (< 0.028) H 09/25/17 21:16 - Assessment/Plan 1.ACS-currently chest pain free currently, cont ASA, BB, statin. On long acting nitrate at home, cont same. Not wanting any intervention at this time, continues to refuse LHC. 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
--- NOTE | 2017-09-28 11:34 | PRG ---
DATE OF SERVICE: 09/28/2017 SUBJECTIVE: The patient denies any abdominal pain. She is eating well without any abdominal pain. OBJECTIVE: VITAL SIGNS: Temperature 98.4, pulse 59, respiratory rate 18, blood pressure 139/63. CHEST: Clear. CARDIOVASCULAR: Regular rate and rhythm. ABDOMEN: Benign. LABORATORY DATA: Shows hemoglobin of 9.7, hematocrit 28.9. Chemistries show creatinine 7.40, BUN 82 . ASSESSMENT: 1. Abdominal pain and persistent nausea and vomiting -- I suspect these were manifestations of the p premaient's end-stage renal disease. 2. End-stage renal disease. RECOMMENDATIONS: The patient is not having any further symptoms. I do not think any further interve ntion is needed. We will sign off.
--- NOTE | 2017-09-28 12:17 | PDOC.PN ---
- Subjective Encounter Start Date: 09/28/17 Encounter Start Time: 12:10 Subjective: f/u for N/V which has resolved. Tolerating po intake. Overall feels better. -: Still contemplating whether to continue with HD. - Objective Resuscitation Status: Resuscitation Status FULL:Full Resuscitation MAR Reviewed: Yes Vital Signs & Weight: Vital Signs (12 hours) Temp Pulse Pulse Pulse Resp BP BP 09/28/17 11:25 97.8 F 79 16 09/28/17 08:58 59 L 57 L 134/63 116/56 L 09/28/17 08:07 98.4 F 59 L 18 09/28/17 08:00 98.4 F 59 L 18 09/28/17 04:00 98.8 F 56 L 15 BP Pulse Ox 09/28/17 11:25 112/56 L 94 L 09/28/17 08:58 09/28/17 08:07 94 L 09/28/17 08:00 139/63 94 L 09/28/17 04:00 130/55 L 94 L Weight Admit Weight 117 lb 8 oz Weight 108 lb I&O: 09/27/17 09/28/17 09/29/17 06:59 06:59 06:59 Intake Total 550 Output Total 1950 50 Balance -1400 -50 Result Diagrams: 09/28/17 04:39 09/28/17 04:39 Additional Labs: Laboratory Tests 09/21/17 09/21/17 09/21/17 15:34 15:34 15:34 Hgb 9.4 L PT INR 3.5 Creatinine 6.39 H Phosphorus Magnesium Troponin I Triglycerides Cholesterol LDL Cholesterol, Calc HDL Cholesterol 09/21/17 09/21/17 09/22/17 15:36 15:36 07:39 Hgb PT INR 2.3 Creatinine Phosphorus 6.3 H Magnesium 2.3 Troponin I 0.028 Triglycerides Cholesterol LDL Cholesterol, Calc HDL Cholesterol 09/23/17 09/23/17 09/24/17 03:46 03:46 03:50 Hgb 10.1 L 10.0 L PT INR Creatinine Phosphorus 4.7 Magnesium Troponin I Triglycerides Cholesterol LDL Cholesterol, Calc HDL Cholesterol 09/25/17 09/25/17 09/25/17 04:46 14:01 17:46 Hgb PT INR Creatinine 4.45 H Phosphorus Magnesium Troponin I 0.112 H 0.102 H Triglycerides Cholesterol LDL Cholesterol, Calc HDL Cholesterol 09/25/17 09/26/17 09/26/17 21:16 04:33 04:33 Hgb PT 18.6 H INR 1.5 Creatinine Phosphorus Magnesium Troponin I 0.092 H Triglycerides 64 Cholesterol 137 LDL Cholesterol, Calc 74 HDL Cholesterol 50 Radiology Reviewed by me: Yes (2D echo - EF 55-60%, diast dysfxn, mod MR) EKG Reviewed by me: Yes (Tele - SR ) Phys Exam - Physical Examination Constitutional: NAD HEENT: PERRLA, moist MMs, sclera anicteric, oral pharynx no lesions Neck: no nodes, no JVD, supple, full ROM Respiratory: no wheezing, no rales, no rhonchi, clear to auscultation bilateral S1, S2 Cardiovascular: RRR, no significant murmur, no rub, gallop Gastrointestinal: soft, non-tender, no distention, positive bowel sounds Musculoskeletal: no edema, pulses present Neurological: non-focal, normal sensation, moves all 4 limbs Psychiatric: normal affect, A&O x 3 Skin: no rash, normal turgor, cap refill <2 seconds Dx/Plan (1) Nausea & vomiting Code(s): R11.2 - NAUSEA WITH VOMITING, UNSPECIFIED Status: Acute Comment: Improved, continue Zofran prn, likely a result of uremia, ESRD and demand ischemia (2) ESRD (end stage renal disease) on dialysis Code(s): N18.6 - END STAGE RENAL DISEASE; Z99.2 - DEPENDENCE ON RENAL DIALYSIS Status: Acute Comment: HD initiated 09/22/17, considering d/c of HD due to side effects (3) Chronic anticoagulation Code(s): 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 Status: Chronic Comment: supratherapeutic INR s/p 4u FFP, serial INR monitoring, stable currently (4) Anemia in CKD (chronic kidney disease) Code(s): N18.9 - CHRONIC KIDNEY DISEASE, UNSPECIFIED; D63.1 - ANEMIA IN CHRONIC KIDNEY DISEASE Status: Chronic Comment: Serial H/H, stable hemoglobin currently and no evidence of acute blood loss (5) HTN (hypertension) Code(s): I10 - ESSENTIAL (PRIMARY) HYPERTENSION Status: Chronic Qualifiers: Hypertension type: essential hypertension Qualified Code(s): I10 - Essential (primary) hypertension Comment: controlled, hypotension noted in last 24h, modify dosing regimen and likely will benefit from spreading dosing intervals over the day (6) Elevated troponin I level Code(s): R74.8 - ABNORMAL LEVELS OF OTHER SERUM ENZYMES Status: Acute Comment: Likely demand ischemia in context of ESRD, continue ASA, Lipitor, Nitrates (7) Physical deconditioning Code(s): R53.81 - OTHER MALAISE Status: Acute Comment: PT for ambulation, SNF options in [facility] - Plan PT/OT, social work program coordinator, out of bed/ambulate, DVT proph w/SCDs Stable overall -: OOB/ambulate with PT -: CM for SNF options -: Discussed code status again and pt wishes to be FULL CODE -: Start Coumadin 5mg daily * AM lab: PT/INR
--- NOTE | 2017-09-28 13:44 | PRG ---
DATE OF SERVICE: 09/28/2017 SERVICE: Renal Medicine. SUBJECTIVE: Ms. Huang is an 87-year-old white female who was admitted for uremic signs and sym ptoms. Hemodialysis was initiated. In the last several days, she has been having nausea and vomitin g. I am trying to shorten my dialysis treatment to see if she will tolerate it better. The nausea a nd vomiting may also been related to her current morphine sulfate. I did advise the patient to minim ize the request for morphine sulfate. She does have some epigastric discomfort. We have also requested a GI consult and Dr. Block has evaluated this patient for her nausea and vomiti ng. No other complaints today. She denies any chest pain or shortness of breath. OBJECTIVE: VITAL SIGNS: Blood pressure is 113/63, heart rate 59, respiratory rate 18, temperature 98.4, pulse o x 94%. GENERAL: Noted to be awake, comfortable, not in distress. SKIN: Adequate turgor. HEENT: She has pinkish conjunctivae, anicteric sclerae. NECK: No neck mass, no carotid bruits, no JVD. CHEST: No deformities. LUNGS: Clear breath sounds. No wheezing, no crackles. HEART: Normal sinus rhythm. No murmur, no gallops or rubs. ABDOMEN: Globular, soft, nontender, no masses. EXTREMITIES: No edema. MEDICATIONS: Of 09/28/2017 was reviewed. LABORATORY DATA: Of 09/28/2017, white count 6.9, hemoglobin 9.7. Sodium 136, potassium 4.1, chlorid e 101, carbon dioxide 22, BUN 82, creatinine of 7.4, glucose 87, calcium 9.2. ASSESSMENT AND PLAN: 1. End-stage renal disease/chronic renal failure. Continue 3 times a week hemodialysis of 3 hours d uration. 2. Nausea and vomiting, clinically improved. Minimizing morphine use. Gastroenterology following. 3. Anemia, continuing weekly Epogen with the patient. P.r.n. blood transfusion. Overall, agree wit h current management. Recheck base met and CBC in a.m.
[2017-09-28] MEDS: Promethazine HCl 12.5 MG in Sodium Chloride 0.9% 50 ML IVPB PRN (14:03)
[2017-09-28] MEDS: Ondansetron HCl/PF 4 MG/2 ML Vial IVP PRN (15:31)
[2017-09-28] MEDS: Bisacodyl 5 MG TAB PO PRN (15:40)
[2017-09-28] MEDS: Morphine 4 MG/ML VIAL SLOW IVP PRN (16:34)
--- NOTE | 2017-09-28 17:11 | EKG ---
Test Reason : Blood Pressure : / mmHG Vent. Rate : 070 BPM Atrial Rate : 070 BPM P-R Int : 122 ms QRS Dur : 076 ms QT Int : 460 ms P-R-T Axes : 000 -12 -86 degrees QTc Int : 496 ms Sinus rhythm with Premature atrial complexes with Abberant conduction abnormal p axis Prolonged QT Abnormal ECG Confirmed by DR. Krupa GARCIA MD ([id number]) on 09/28/2017 5:11:30 PM Referred By: Confirmed By:DR. Krupa GARICA MD
[2017-09-28] MEDS: Warfarin Sodium 5 MG TAB PO SCH (17:32)
[2017-09-28] MEDS ORDERED: Scopolamine 1.5 mg/72 hour Patch TOP SCH (18:00)
[2017-09-28] MEDS ORDERED: Zolpidem Tartrate 5 MG TAB PO PRN (20:43)
[2017-09-28] MEDS: Atorvastatin Calcium 20 MG TAB PO SCH (21:03)
[2017-09-29 05:24] LABS: #Basophils 0.1 thou/uL (0.0-0.2); #Eosinphils 0.1 thou/uL (0.0-0.7); #Lymphocytes 1.3 thou/uL (1.20-3.40); #Monocytes 0.9 thou/uL (0.11-0.59); #Neutrophils 5.3 thou/uL (1.40-6.50); %Monocytes 11.4 % (0.0-10.0); %Neutrophils 69.6 % (42.0-75.0); Hemoglobin 9.7 g/dL (12.0-16.0); Mean Corpuscular HGB CONC 33.7 g/dL (32.0-36.0); Mean Corpuscular Hemoglobin 31.6 pg (27.0-31.0); Mean Corpuscular Volume 93.9 fl (81.0-99.0); Mean Platelet Volume 8.5 fL (7.4-10.4); Platelet Count 277 thou/uL (130-400); RBC Distribution Width 11.8 % (11.5-14.5); Red Blood Cell (RBC) Count 3.05 mill/uL (4.20-5.40); White Blood Cell (WBC) Count 7.6 thou/uL (4.8-10.8)
[2017-09-29 05:29] LABS: INR-International Normal Ratio 1.4; Prothrombin Time 17.3 SEC (12.0-14.7)
[2017-09-29 05:38] LABS: Anion Gap 19 mmol/L (10-20); BUN (Urea Nitrogen) 102 mg/dL (9.8-20.1); Calc. Creatinine Clearance 4 mL/min (70-130); Calcium 8.9 mg/dL (7.8-10.44); Carbon Dioxide 23 mmol/L (23-31); Chloride 98 mmol/L (98-107); Estimated GFR-MDRD 4; Glucose 102 mg/dL (83-110); Potassium 4.2 mmol/L (3.5-5.1); Sodium 136 mmol/L (136-145)
--- NOTE | 2017-09-29 08:11 | PRG ---
DATE OF SERVICE: 09/29/2017 SERVICE: Renal Medicine. SUBJECTIVE: Ms. Huang is complaining of nausea, vomiting, and abdominal pain. She was pain-marina e until yesterday afternoon when she ate and after 15 minutes developed severe abdominal pain with so me nausea. She thinks it was from the phosphate binder. She was previously blaming the nausea and v omiting from the dialysis. I have not dialyzed this patient since last Thursday and she still has th is on and off abdominal pain as well as the nausea and vomiting. I feel that this nausea, vomiting, and abdominal pain is not related to the dialysis. She has also been evaluated by the GI service. M y plan is to at least image the patient's abdomen with a CT scan to rule out any ischemic etiology. Furthermore, the patient has not had a bowel movement for the last 7 days. She has been given some l axative already. The patient denies any chest pain or shortness of breath. I had a long discussion with the patient's son and this patient can be given the option of withdrawing from active treatment. However, they are uncertain as what to do at the present time. The patient denies any chest pain o r shortness of breath. OBJECTIVE: VITAL SIGNS: Blood pressure 132/63, heart rate 54, respiratory rate 15, pulse ox 96%, temperature 96 .1. GENERAL: Awake, alert, in mild distress. SKIN: Adequate turgor. HEENT: Pinkish conjunctivae, anicteric sclerae. NECK: No neck mass, no carotid bruits, no JVD. CHEST: No deformities. LUNGS: Clear breath sounds. HEART: Normal sinus rhythm. No murmur, no gallops, no rubs. ABDOMEN: Globular, soft, nontender, no masses. EXTREMITIES: No edema, no deformities. MEDICATIONS: Of 09/29/2017 was reviewed. LABORATORY DATA: Of 09/29/2017, white count 7.6, hemoglobin 9.7, sodium 136, potassium 4.2, chloride 98, carbon dioxide 23, BUN 102, creatinine 8.6, glucose 102, calcium 8.9. ASSESSMENT AND PLAN: 1. End-stage renal disease/chronic renal failure - the patient is declining hemodialysis today. She felt that the nausea and vomiting is related to the dialysis. However, I have explained to the mayco ent, she has had no dialysis for the last several days and she still has this nausea and vomiting. A gain, I did explain to the son that they can withdraw from dialysis treatment if they feel that the p atient is not wanting to pursue dialysis. 2. Abdominal pain - order a CT scan of the abdomen. Consider also a CT angio of the abdomen to rule out any ischemic etiology. 3. Borderline anemia - patient currently on Epogen. The patient is declining dialysis today. We will hold off dialysis.
[2017-09-29 10:43] VITALS: BP 186/83; TEMP 98.5
[2017-09-29] MEDS: Sevelamer Carbonate 800 MG TAB PO SCH ×3 (10:43→17:28)
[2017-09-29] MEDS: Docusate 100 MG CAP PO SCH (10:45)
[2017-09-29] MEDS: Enoxaparin Sodium 60 MG/0.6 ML SYRINGE SC SCH (10:45)
[2017-09-29] MEDS: Aspirin 81 mg Enteric Coated Tablet PO SCH (10:45)
[2017-09-29] MEDS: hydrALAZINE 25 MG TAB PO SCH (10:45)
[2017-09-29] MEDS: Fenofibrate 48 MG TAB PO SCH (10:45)
[2017-09-29] MEDS: Metoprolol Tartrate 50 MG TAB PO SCH (10:46)
[2017-09-29] MEDS: Minoxidil 2.5 MG TAB PO SCH (10:46)
[2017-09-29] MEDS: Nitroglycerin 2% Ointment 1 INCH/1 GM Packet TOP SCH (10:46)
[2017-09-29] MEDS: NIFEdipine XL 60 MG TAB PO SCH (10:46)
[2017-09-29] MEDS: Bisacodyl 5 MG TAB PO PRN (10:53)
[2017-09-29 10:55] VITALS: BMI 16.9
[2017-09-29] MEDS ORDERED: Iopamidol 370 76% 100 ML VIAL ONE (10:58)
[2017-09-29] MEDS ORDERED: ALPRAZolam 0.25 MG TAB PO PRN (11:16)
[2017-09-29] MEDS ORDERED: ALPRAZolam 0.25 MG TAB PO SCH (11:30)
--- NOTE | 2017-09-29 11:40 | CT ---
CTA ANGIO ABDOMEN AND PELVIS: PRECONTRAST ENHANCED CT IMAGES ABDOMEN AND PELVIS: TECHNIQUE: Arterial and venous phase imaging performed, and 2D and 3D reconstructed images used to evaluate the chest. FINDINGS: The lung bases demonstrate an area of spiculated density at the posterior aspect of the right lower l obe, diameter measuring approximately 15 mm. A second area of spiculated density is also seen in the left lower lobe, diameter measuring approximately 15 mm. The liver and spleen are unremarkable. The gallbladder and pancreas is unremarkable. There is bilat eral renal cortical atrophy. Numerous bilateral renal and parapelvic renal cysts are seen. There is a small focal area of arterial enhancement in the lower pole of the left kidney. This may r epresent a vascular malformation or fistula in the left lower pole. the diameter of this lesion joyce ures approximately 7 mm. The abdominal aorta contains some atherosclerotic plaques. The SMA, celiac, and ARELI vessels are ortiz nt. The right and left renal arteries are patent. No evidence of abdominal aortic aneurysm seen. A moderate amount of stool is seen in the colon. Multilevel lumbar degenerative changes are seen. IMPRESSION: 1. Bilateral renal cortical atrophy with bilateral renal cortical and parapelvic cysts. 2. 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 3. Bilateral lower lobe lung parenchymal spiculated densities. Malignancy cannot be excluded.
[2017-09-29] MEDS: Ondansetron HCl/PF 4 MG/2 ML Vial IVP PRN (11:47)
--- NOTE | 2017-09-29 12:38 | PDOC.PN ---
- Subjective Encounter Start Date: 09/29/17 Encounter Start Time: 12:20 Subjective: f/u for recurrent N/V and abd pain with negative CT and KUB. N/V after -: eating this am. Nsg reported restlessness, agitation, and legs flailing. -: Pt refusing HD today as she feels worse. - Objective Resuscitation Status: Resuscitation Status FULL:Full Resuscitation MAR Reviewed: Yes Vital Signs & Weight: Vital Signs (12 hours) Temp Pulse Resp BP Pulse Ox 09/29/17 10:37 98.5 F 63 18 186/83 H 100 09/29/17 08:05 98.5 F 63 18 100 09/29/17 04:00 96.1 F L 54 L 15 132/63 96 Weight Admit Weight 117 lb 8 oz Weight 108 lb I&O: 09/28/17 09/29/17 09/30/17 06:59 06:59 06:59 Intake Total 360 Output Total 50 Balance -50 360 Result Diagrams: 09/29/17 04:38 09/29/17 04:38 Additional Labs: Laboratory Tests 07/12/15 09/21/17 09/21/17 04:05 15:34 15:34 Hgb PT 21.3 H INR 1.8 3.5 Creatinine 6.39 H Phosphorus Magnesium Troponin I Triglycerides Cholesterol LDL Cholesterol, Calc HDL Cholesterol 09/21/17 09/21/17 09/21/17 15:34 15:36 15:36 Hgb 9.4 L PT INR Creatinine Phosphorus 6.3 H Magnesium 2.3 Troponin I 0.028 Triglycerides Cholesterol LDL Cholesterol, Calc HDL Cholesterol 09/22/17 09/23/17 09/23/17 07:39 03:46 03:46 Hgb 10.1 L PT INR 2.3 Creatinine Phosphorus 4.7 Magnesium Troponin I Triglycerides Cholesterol LDL Cholesterol, Calc HDL Cholesterol 09/24/17 09/25/17 09/25/17 03:50 04:46 14:01 Hgb 10.0 L PT INR Creatinine 4.45 H Phosphorus Magnesium Troponin I 0.112 H Triglycerides Cholesterol LDL Cholesterol, Calc HDL Cholesterol 09/25/17 09/25/17 09/26/17 17:46 21:16 04:33 Hgb PT 18.6 H INR 1.5 Creatinine Phosphorus Magnesium Troponin I 0.102 H 0.092 H Triglycerides Cholesterol LDL Cholesterol, Calc HDL Cholesterol 09/26/17 09/29/17 04:33 04:38 Hgb PT 17.3 H INR 1.4 Creatinine Phosphorus Magnesium Troponin I Triglycerides 64 Cholesterol 137 LDL Cholesterol, Calc 74 HDL Cholesterol 50 Radiology Reviewed by me: Yes (CT abd/pel - no acute process, renal cysts) EKG Reviewed by me: Yes (Tele - Sinus bradycardia in 50's) Phys Exam - Physical Examination sleeping, opens eyes briefly then falls asleep HEENT: PERRLA, moist MMs, sclera anicteric, oral pharynx no lesions Neck: no nodes, no JVD, supple, full ROM Respiratory: no wheezing, no rales, no rhonchi, clear to auscultation bilateral S1, S2 Cardiovascular: RRR, no significant murmur, no rub, gallop mild TTP Gastrointestinal: soft, no distention, positive bowel sounds Musculoskeletal: no edema, pulses present lethargic but arouses to name, conversation Neurological: normal sensation, moves all 4 limbs Psychiatric: A&O x 3 Skin: no rash, normal turgor, cap refill <2 seconds Dx/Plan (1) Uremia syndrome Code(s): N19 - UNSPECIFIED KIDNEY FAILURE Status: Acute Comment: Secondary to ESRD, will continue to worsen, Palliative care, pt does not want HD currently (2) Nausea & vomiting Code(s): R11.2 - NAUSEA WITH VOMITING, UNSPECIFIED Status: Acute Comment: Improved, continue Zofran prn, likely a result of uremia, ESRD and demand ischemia, trial Scopolamine patch (3) ESRD (end stage renal disease) on dialysis Code(s): N18.6 - END STAGE RENAL DISEASE; Z99.2 - DEPENDENCE ON RENAL DIALYSIS Status: Acute Comment: HD initiated 09/22/17, considering d/c of HD due to side effects, Palliative care consult (4) Chronic anticoagulation Code(s): Z79.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 OF ANTICOAGULANTS Status: Chronic Comment: supratherapeutic INR s/p 4u FFP, serial INR monitoring, stable currently (5) Anemia in CKD (chronic kidney disease) Code(s): N18.9 - CHRONIC KIDNEY DISEASE, UNSPECIFIED; D63.1 - ANEMIA IN CHRONIC KIDNEY DISEASE Status: Chronic Comment: Serial H/H, stable hemoglobin currently and no evidence of acute blood loss (6) HTN (hypertension) Code(s): I10 - ESSENTIAL (PRIMARY) HYPERTENSION Status: Chronic Qualifiers: Hypertension type: essential hypertension Qualified Code(s): I10 - Essential (primary) hypertension Comment: controlled, hypotension noted in last 24h, modify dosing regimen and likely will benefit from spreading dosing intervals over the day (7) Elevated troponin I level Code(s): R74.8 - ABNORMAL LEVELS OF OTHER SERUM ENZYMES Status: Acute Comment: Likely demand ischemia in context of ESRD, continue ASA, Lipitor, Nitrates (8) Physical deconditioning Code(s): R53.81 - OTHER MALAISE Status: Acute Comment: PT for ambulation, SNF options in [facility] - Plan plan discussed w/ family, PT/OT, social media marketing specialist, DVT proph w/SCDs d/w with pt's son regarding current situation, pt and family trying to -: decide which options to pursue and whether to continue with HD or stop -: Decrease Metoprolol 25mg BID -: Ativan 0.25mg po q8h prn -: Dulcolax supp 10mg today * Scopolamine TD 1.5mg q3d * AM lab: BMP, CBC * Palliative care consult
[2017-09-29] MEDS ORDERED: Fleet Enema 133 ML BOT PR SCH (17:00)
[2017-09-29] MEDS: Warfarin Sodium 5 MG TAB PO SCH (17:28)
[2017-09-29] MEDS ORDERED: Metoprolol Tartrate 25 MG TAB PO SCH (21:00)
--- NOTE | 2017-09-29 21:39 | DIS ---
DATE OF ADMISSION: 09/30/2017 DATE OF DISCHARGE: 09/30/2017 DISCHARGE DIAGNOSES: 1. 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 2. Nausea and vomiting secondary to #1, persistent. 3. End-stage renal disease, initiated on hemodialysis, now discontinued. 4. Chronic anticoagulation with Coumadin. 5. Anemia secondary to chronic kidney disease. 6. Hypertension. 7. Elevated troponin I secondary to demand ischemia. 8. Physical deconditioning. CONSULTATIONS: Dr. Dowell with nephrology service. Dr. Block with GI service. Dr. Escobedo with cardio logy service. PERTINENT LABORATORY DATA AND X-RAY FINDINGS: Creatinine ranged between 4.45 to 8.60, estimated GFR ranging between 4 to 9, total cholesterol 137, triglycerides 64, HDL 50, LDL 74. Troponin I ranged b etween 0.028 to 0.112. CBC showed hemoglobin ranging between 9.7 to 10.2. INR ranged between 1.4 to 3.5. Hepatitis B negative, hepatitis C RNA qualitative negative on 09/23/2017. Portable chest x-ra y dated 09/21/2017 showed right perihilar prominence, mild volume overload, and pulmonary edema. Por table chest x-ray dated 09/22/2017 showed dialysis catheter with tip in the mid to inferior superior vena cava. A 2D transthoracic echocardiogram dated 09/27/2017 showed ejection fraction of 55%-60%. Diastolic dysfunction noted. Moderate mitral valve regurgitation noted. CT of the abdomen and pelvi s with angiography dated 09/29/2017 showed bilateral renal cortical atrophy with peripelvic cysts. F ocal vascular malformation in the lower pole of the left kidney. Bilateral lower lobe parenchymal ch anges with spiculated densities. HOSPITAL COURSE: Patient was initially admitted to the telemetry unit after presenting with worsenin g renal failure in the context of chronic kidney disease, stage 4. Patient was recommended to initia te hemodialysis due to worsening renal failure and uremia. Patient underwent temporary hemodialysis catheter placement and started hemodialysis. Patient had persistent nausea and vomiting throughout t he hospital course with difficult to control symptoms with IV and oral antiemetics. Patient was trie d on various regimens including transdermal scopolamine and benzodiazepines. Patient continued to cl inically decline with poor appetite, persistent nausea, and general weakness. Patient refused hemodi alysis sessions due to recurrent nausea and vomiting, and general malaise. Patient was evaluated by the Cardiology service due to elevated troponin I in the context of end-stage renal disease and likel y demand ischemia. Patient was treated with aspirin and underwent 2D transthoracic echocardiogram sh owing preserved ejection fraction and moderate mitral valve regurgitation. Patient also underwent ev aluation by the GI service due to persistent nausea and vomiting without specific acute intervention and recommendations for symptomatic control. Patient's symptoms likely secondary to uremia syndrome. Due to patient's intolerance of hemodialysis, persistent nausea, vomiting, and continued clinical d ecline, discussions were had with the patient and family regarding palliative measures as well as hos pice options. Patient decided to pursue palliative and hospice care, at which point patient will tra nsition to inpatient hospice care after discharge. On the day of discharge, I have examined the mayco ent discussed various options as well as understood wishes of the patient and family regarding ongoin g hospice care. Patient will discharge to inpatient hospice through [facility] services o n 09/29/2017. DISCHARGE MEDICATIONS: 1. Alprazolam 0.25 mg p.o. q.8 hours p.r.n. 2. Fenofibrate 48 mg p.o. daily. 3. Hydralazine 25 mg p.o. b.i.d. 4. Isosorbide mononitrate 120 mg p.o. daily. 5. Lopressor 25 mg p.o. b.i.d. 6. Minoxidil 2.5 mg p.o. daily. 7. Procardia-XL 60 mg p.o. daily. 8. Transdermal scopolamine patch 1.5 mg topically q.72 hours. 9. Coumadin 5 mg p.o. at bedtime. FOLLOWUP: Patient to follow up with [facility] inpatient unit after discharge. CONDITION ON DISCHARGE: Guarded. ACTIVITY: Ad-sd. DIET: Regular. CODE STATUS: DO NOT RESUSCITATE. DISPOSITION: Transfer to [facility], [place], [place] 09/29/2017. Total time preparing and coordinating discharge 33 minutes.
--- NOTE | 2017-10-14 11:04 | PQF ---
EFE THOMPSON KIMIYE MD [id number] JULIA DE [id number] CLINICAL DOCUMENTATION CLARIFICATION FORM: POST DISCHARGE Addendum to original discharge summary date: ____ Late entry note date: __ Please specify the type of hemodialysis catheter placed. Please exercise your independent, professional judgment in responding to the clarification form. Clinical indicators are provided on the bottom of this form for your review Procedure: insertion of inferior SVC cath for hemodilayis Please specify if this was a Tunneled Hemodialysis cath or NON tunneled hemodialysis cath insertion. [ ] Device/Implant - tunneled hemodialysis cath ( ) Device /implant dcath directly passed to the inferior . [ ] Unable to determine [ ] Other procedure: CLINICAL INDICATORS - SIGNS/ SYMPTOMS / LABS image confirmation of placement of SVC cath for dialysis RISK FACTORS CKD TREATMENT hemodialyisis (This form is maintained as a part of the permanent medical record) 2014 [employer]. All Rights Reserved [email or web address] [phone] [email or web address]
--- NOTE | 2017-10-21 11:47 | EKG ---
Test Reason : Blood Pressure : / mmHG Vent. Rate : 064 BPM Atrial Rate : 064 BPM P-R Int : 110 ms QRS Dur : 070 ms QT Int : 462 ms P-R-T Axes : 110 -20 -52 degrees QTc Int : 476 ms Sinus rhythm with short WA Cannot rule out Anterior infarct , age undetermined Abnormal ECG Confirmed by KERRY KNAPP D.O. ([id number]), editor book ADRIENNE OLIVER ([id number]) on 10/21/2017 11:47:05 AM Referred By: Confirmed By:KERRY KNAPP D.O.
== END 2017-09-29 19:30 | disposition hospice, inpatient (51) | DRG 682 ==
LOC: ERS 15:15 → ERHOLD 17:44 → 2NO 09-22 02:54 → SURG B 09-24 19:28 → 2NO 09-25 16:08
PROVIDERS: ADMIT Emergency Medicine; ATTEND Emergency Medicine
PROC: 5A1D70Z Performance of Urinary Filtration, Intermittent, Less than 6 Hours Per Day (ICD-10-PCS; principal; 2017-09-21)
PROC: 02HV33Z Insertion of Infusion Device into Superior Vena Cava, Percutaneous Approach (ICD-10-PCS; 2017-09-22)
PROC: 30233K1 Transfusion of Nonautologous Frozen Plasma into Peripheral Vein, Percutaneous Approach (ICD-10-PCS; 2017-09-23)
DX: I12.0 Hypertensive chronic kidney disease with stage 5 chronic kidney disease or end stage renal disease (principal); N18.6 End stage renal disease; Z68.1 Body mass index [BMI] 19.9 or less, adult; I24.8 Other forms of acute ischemic heart disease; Z66 Do not resuscitate; Z51.5 Encounter for palliative care; E78.5 Hyperlipidemia, unspecified; D63.1 Anemia in chronic kidney disease; E87.79 Other fluid overload; S82.892D Other fracture of left lower leg, subsequent encounter for closed fracture with routine healing; R79.1 Abnormal coagulation profile; E83.39 Other disorders of phosphorus metabolism; Z53.29 Procedure and treatment not carried out because of patient's decision for other reasons; K59.00 Constipation, unspecified; I34.0 Nonrheumatic mitral (valve) insufficiency; W19.XXXD Unspecified fall, subsequent encounter; R63.4 Abnormal weight loss; Z86.711 Personal history of pulmonary embolism; Z86.718 Personal history of other venous thrombosis and embolism; Z79.01 Long term (current) use of anticoagulants; Z90.710 Acquired absence of both cervix and uterus; Z79.899 Other long term (current) drug therapy; Z88.0 Allergy status to penicillin; Z90.5 Acquired absence of kidney; Z87.39 Personal history of other diseases of the musculoskeletal system and connective tissue
CPT/HCPCS: 36415; 36430; 71045; 74018; 74174; 74178; 80048; 80053; 80061; 81003; 81015; 82550; 82553; 83735; 83970; 84100; 84484; 85025; 85610; 85730; 86580; 86704; 86706; 86850; 86900; 86901; 87340; 87521; 90935; 93005; 93010; 93306; 93970; 96374; A4216; C1752; C1769; G0257; G0365; G8978-GP-CK; G8978-GP-CM; G8979-GP-CI; G8979-GP-CK; G8987-GO-CJ; G8988-GO-CH; J0360; J1644; J1650; J1956; J2001; J2175; J2270; J2405; J2550; J2704; J3490; J7050; P9059; Q0162; Q4081